=== PATIENT | male | born 1935 | race Caucasian/White ===

== ENCOUNTER 2017-05-12 06:06 | Day surgery (SDC) | payer MEDICARE, MEDICAID ==
[~2017-05-12 06:06] MED LIST: Buffered Lidocaine 0.9% SYRIN* 5 ML/SYR SYRINGE INTRADERM ONE; Famotidine IV* 10 MG/ML 2 ML (20 mg) IV ONE; Morphine INJ* 2 MG/ML 1 ML CARPUJECT IV PRN; PROCHLORPERAZINE INJ 5 MG/ML 2 ML VIAL IV PRN; fentaNYL* 50 MCG/ML 2 ML VIAL (100 MCG VIAL) IV PRN; oxyCODONE/Acetamin 5/325 MG* TAB PO PRN
[2017-05-12] MEDS ORDERED: Famotidine IV* 10 MG/ML 2 ML (20 mg) ONE (06:26)
[2017-05-12] MEDS ORDERED: Buffered Lidocaine 0.9% SYRIN* 5 ML/SYR SYRINGE ONE (06:27)
[2017-05-12] MEDS ORDERED: cefTRIAXone(*) 2 GM ADDV.VIAL IVPB ONE (06:57)
[2017-05-12] MEDS ORDERED: fentaNYL* 50 MCG/ML 2 ML VIAL (100 MCG VIAL) ONE (07:32)
[2017-05-12] MEDS ORDERED: Midazolam* 1 MG/ML 5 ML VIAL (5 MG) ONE (07:32)
[2017-05-12] MEDS ORDERED: KETAMINE HCL* 50 MG/ML 10 ML VIAL ONE (07:32)
[2017-05-12] MEDS ORDERED: Chloroprocaine 2%* 20 ML VIAL ONE (08:27)
[2017-05-12] MEDS ORDERED: Glycopyrrolate IV* 0.2 MG/ML 1 ML VIAL ONE (08:27)
[2017-05-12] MEDS ORDERED: Phenylephrine INJ* 10 MG/ML 1 ML VIAL (10 MG) ONE (08:28)
[2017-05-12] MEDS ORDERED: mitoMYcin PWD* 40 MG in Sterile Water for Inj* 40 ML IRRIGATION ONE (10:00)
[2017-05-12 10:19] VITALS: BP 153/90
--- NOTE | 2017-05-13 00:31 | OP ---
CC: Dr. Zarco * DATE OF OPERATION: 05/12/17 - [facility] DATE OF : 31 SURGEON: Ramírez Wylie MD ANESTHESIOLOGIST: Jase Ybarra MD ANESTHESIA: Spinal. PRE-OP DIAGNOSES: 1. History of bladder tumors. 2. Suspicious bladder lesion (left base). POST-OP DIAGNOSIS: Pending pathology. OPERATIVE PROCEDURE: 1. Cystoscopy. 2. Excisional biopsy and fulguration of bladder lesion (left base, 1.5 cm). INDICATIONS FOR PROCEDURE: Mr. 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 On his last cystoscopy, an irregularity and hyperemia of the mucosa in the left base was noted. The patient had received radiation therapy for carcinoma of the prostate completed in May 2008. Because of the above history and finding and the suspicious lesion seen, the above procedure was advised and accepted. PATHOLOGY: at cystoscopy; the penile and bulbar urethrae looked normal. The prostatic urethra measured 2.5 cm in length and there was early obstruction by prostate enlargement. Examination of the bladder showed normal ureteral orifices. A flat lesion measuring about 1.5 cm in diameter was noted lateral to the left ureteral orifice. There was irregularity and some hyperemia of the mucosa. No papillary lesions were seen. No other bladder lesions were noted. No calculi or diverticula were seen. DESCRIPTION OF PROCEDURE: After successful spinal anesthesia, the patient was placed in the lithotomy position and was prepped and draped for a cystoscopy. Cystoscopy was performed. The bladder was carefully inspected and the above findings were noted. It was a little bit difficult identifying the left orifice because of a mucosal fold. The orifice, however, was successfully identified and was briefly intubated to document its location. Using the rigid biopsy forceps, the bladder lesion in the left base was excised down to muscle. The specimen was sent for pathology. The site of the excisional biopsies and the surrounding mucosa were thoroughly fulgurated with coagulation current, achieving very good hemostasis and no residual suspicious lesions were noted. The cystoscope was removed. A 16-Irish Gerber catheter was then passed inside the bladder. The patient tolerated the procedure well and left the operating room in good condition. The plan is to give the patient one dose of intravesical mitomycin-C in the PACU before his discharge. [id number]/[facility] #: [id number] MTDD
== END 2017-05-12 11:03 | disposition home or self-care (01) ==
LOC: OR 06:06
PROVIDERS: ATTEND Urology
DX: D09.0 Carcinoma in situ of bladder (principal); Z87.891 Personal history of nicotine dependence; I25.10 Atherosclerotic heart disease of native coronary artery without angina pectoris; Z95.5 Presence of coronary angioplasty implant and graft; Z79.01 Long term (current) use of anticoagulants; K21.9 Gastro-esophageal reflux disease without esophagitis; J44.9 Chronic obstructive pulmonary disease, unspecified; Z85.46 Personal history of malignant neoplasm of prostate; I10 Essential (primary) hypertension; I73.9 Peripheral vascular disease, unspecified; Z85.038 Personal history of other malignant neoplasm of large intestine; N18.3 Chronic kidney disease, stage 3 (moderate); Z85.118 Personal history of other malignant neoplasm of bronchus and lung
CPT/HCPCS: 88305; J0696; J2250; J2400; J3010; J9280

== ENCOUNTER 2017-08-13 15:06 | Inpatient (IN) | payer MEDICARE, MEDICAID ==
[2017-08-13] MEDS ORDERED: cefTRIAXone(*) 1 GM in NS 0.9% 50 ML* 50 ML IVPB ONE (15:31)
[2017-08-13] MEDS: NS 0.9% 1000 ML* 1,000 ML IV ONE ×2 (15:38→18:51)
[2017-08-13 15:42] LABS: Hematocrit 46 % (42-52); Mean Corpuscular HGB Conc 33 g/dl (31-36); Mean Corpuscular Hemoglobin 26 pg (27-31); Mean Corpuscular Volume 80 fL (80-94); Mean Platelet Volume 10 um3 (7.4-10.4); Platelet Count 139 10^3/ul (150-450); Red Blood Count 5.71 10^6/ul (4.0-5.4); Red Cell Distribution Width 15 % (10.5-15); White Blood Count 18.9 10^3/ul (3.5-10.8)
--- NOTE | 2017-08-13 15:58 | RAD ---
INDICATION: Cough and fever COMPARISON: Chest x-ray November 29, 2016 TECHNIQUE: An AP portable view obtained at 1543 hours is submitted. FINDINGS: Bones/Soft Tissues: There are no acute bony findings. Cardiomediastinal: The chronic silhouette is mildly prominent. Lungs: The left lung is clear. There is volume loss in the right chest with increased airspace disease. Pleura: Chronic blunting of the rectus phrenic angle versus pleural fluid. Other: None IMPRESSION: CHRONIC PLEURAL AND PARENCHYMAL ABNORMALITIES RIGHT CHEST WITH VOLUME LOSS. SUSPECT SUPERIMPOSED POST INFILTRATE WITH INCREASED CONSOLIDATIVE CHANGE.
[2017-08-13 16:00] LABS: ABS Basophils 0.1 10^3/ul (0-0.2); ABS Eosinophils 0 10^3/ul (0-0.6); ABS Lymphocytes 0.6 10^3/ul (1.0-4.8); ABS Monocytes 0.5 10^3/ul (0-0.8); ABS Neutrophils 17.7 10^3/ul (1.5-7.7); ABS Nucleated RBC 0 10^3/ul; Eosinophil % 0.1 % (0-6); Nucleated Red Blood Cells % 0
[2017-08-13 16:43] LABS: INR 1.24 (0.77-1.02)
[2017-08-13] MEDS ORDERED: NS 0.9% 1000 ML* 2,000 ML IV ONE (16:43)
[2017-08-13] MEDS ORDERED: Azithromycin IV(*) 500 MG in NS 0.9% 250 ML* 250 ML IVPB SCH (17:00)
[2017-08-13] MEDS ORDERED: NS 0.9% 1000 ML* 1,000 ML IV ONE (17:13)
[2017-08-13] MEDS ORDERED: Ondansetron INJ* 2 MG/ML VIAL IV PRN (17:45)
[2017-08-13] MEDS ORDERED: Albuterol/Ipratropium NEB.SOL* Albuterol 2.5 MG/Ipratropium 0.5 MG 3 ML INH PRN (18:12)
[2017-08-13] MEDS: Acetaminophen TAB* 325 MG PO PRN (18:22)
--- NOTE | 2017-08-13 18:51 | ED ---
Delmi Gutiérrez Thomas, scribed for Ron Hillman MD on 08/13/17 at 1546 . HPI Febrile Illness - HPI Summary HPI Summary: The patient is an 82 year old male that is brought to the emergency room by his and granddaughter with fever, productive cough, and chills that began last night. Per triage note, he is short of breath. The patient additionally complains of decreased appetite. The patient speaks [place]an, and the patients granddaughter acts as banquet coordinator. - History of Current Complaint Chief Complaint: EDFluSymptoms Time Seen by Provider: 08/13/17 15:16 Hx Obtained From: Patient Onset/Duration: Started Days Ago - 1, Still Present Timing: Constant Initial Severity: Moderate Current Severity: Moderate Pain Intensity: 0 Pain Scale Used: 0-10 Numeric Aggravating Factors: Nothing Alleviating Factors: Nothing Associated Signs and Symptoms: Other: - fever, productive cough, chills, SOB, decreased appetite - Additional Pertinent History Primary Care Physician: NILS - Allergy/Home Medications Allergies/Adverse Reactions: Allergies Allergy/AdvReac Type Severity Reaction Status Date / Time No Known Allergies Allergy Verified 08/13/17 15:14 Home Medications: Home Medications Albuterol HFA INHALER* [Ventolin HFA Inhaler*] 2 puff INH Q4H PRN 08/13/17 [ History Confirmed 08/13/17] Lisinopril/HCTZ 20/12.5(NF) [Zestoretic 20/12.5(NF)] 1 tab PO DAILY 08/13/17 [ History Confirmed 08/13/17] Metoprolol Tartrate TAB* [Lopressor TAB*] 25 mg PO BID 08/13/17 [History Confirmed 08/13/17] Nitroglycerin TAB 0.4 MG* 0.4 mg SL Q5M PRN 08/13/17 [History Confirmed 08/13/17 ] Tiotropium CAP.INH* [Spiriva CAP.INH*] 1 cap.inh INH DAILY 08/13/17 [History Confirmed 08/13/17] PMH/Surg Hx/FS Hx/Imm Hx Endocrine/Hematology History: Denies: Hx Diabetes Cardiovascular History: Reports: Hx Coronary Artery Disease, Hx Hypertension, Hx Pacemaker/ICD, Hx Peripheral Vascular Disease Comment Only: Other Cardiovascular Problems/Disorders - CARDIAC STENT 10/2012 Respiratory History: Reports: Hx Chronic Obstructive Pulmonary Disease (COPD), Hx Lung Cancer, Other Respiratory Problems/Disorders - LUNG CA GI History: Reports: Hx Gastroesophageal Reflux Disease, Hx Ulcer - GI Bleed - healed, Other GI Disorders - hx of polyps in colon History: Reports: Other Problems/Disorders - Prostate cancer resolved Denies: Hx Renal Disease Musculoskeletal History: Reports: Hx Arthritis Sensory History: Reports: Hx Contacts or Glasses - glasses, Hx Hearing Aid - left ? ear Opthamlomology History: Reports: Hx Contacts or Glasses - glasses Neurological History: Denies: Hx Seizures Psychiatric History: Reports: Hx Anxiety - Cancer History Cancer Type, Location and Year: prostate, bladder, lung cancer Hx Chemotherapy: No - Surgical History Surgery Procedure, Year, and Place: right LUNG LOBECTOMY. HERNIA repair. coronary artery stent placement. rectal polyp removed Hx Anesthesia Reactions: No - Immunization History Date of Tetanus Vaccine: UNKNOWN Infectious Disease History: No Infectious Disease History: Reports: Hx Shingles Denies: Hx Hepatitis, History Other Infectious Disease, Traveled Outside the [place] in Last 30 Days - Family History Known Family History: Positive: Hypertension, Diabetes, Other - HLD, CVA - Social History Alcohol Use: None Substance Use Type: Reports: None Hx Tobacco Use: No Smoking Status (MU): Former Smoker Amount Used/How Often: smoked since 17 years Review of Systems Positive: Fever, Chills Positive: Shortness Of Breath, Cough Positive: Other - Decreased appetite. All Other Systems Reviewed And Are Negative: Yes Physical Exam - Summary Physical Exam Summary: VITAL SIGNS: Reviewed. GENERAL: Patient is a well-developed and nourished male is lying comfortable in the stretcher. Patient is not in any acute respiratory distress. HEAD AND FACE: No signs of trauma. No ecchymosis, hematomas or skull depressions. No sinus tenderness. EYES: PERRLA, EOMI x 2, No injected conjunctiva, no nystagmus. EARS: Hearing grossly intact. Ear canals and tympanic membranes are within normal limits. NOSE: Nasal mucosa and oral mucosa are dry. MOUTH: Oropharynx within normal limits. NECK: Supple, trachea is midline, no adenopathy, no JVD, no carotid bruit, no c- spine tenderness, neck with full ROM. CHEST: Symmetric, no tenderness at palpation LUNGS: Bilateral crackles. CVS: Tachycardia, regular rhythm, S1 and S2 present, no murmurs or gallops appreciated. ABDOMEN: Soft, non-tender. No signs of distention. No rebound no guarding, and no masses palpated. Bowel sounds are normal. EXTREMITIES: FROM in all major joints, no edema, no cyanosis or clubbing. NEURO: Alert and oriented x 3. No acute neurological deficits. Speech is normal and follows commands. SKIN: Dry and warm Triage Information Reviewed: Yes Vital Signs On Initial Exam: Initial Vitals Temp Pulse Resp BP Pulse Ox 100.9 F 135 24 133/76 91 08/13/17 15:15 08/13/17 15:15 08/13/17 15:15 08/13/17 15:15 08/13/17 15:15 Vital Signs Reviewed: Yes Diagnostics - Vital Signs Vital Signs Temp Pulse Resp BP Pulse Ox 08/13/17 15:35 95 08/13/17 15:15 100.9 F 135 24 133/76 91 - Laboratory Lab Results: Lab Results 08/13/17 08/13/17 08/13/17 Range/Units 15:30 15:30 15:30 WBC (3.5-10.8) 10^3/ul RBC (4.0-5.4) 10^6/ul Hgb (14.0-18.0) g/dl Hct (42-52) % MCV (80-94) fL MCH (27-31) pg MCHC (31-36) g/dl RDW (10.5-15) % Plt Count (150-450) 10^3/ul MPV (7.4-10.4) um3 Neut % (Auto) (38-83) % Lymph % (Auto) (25-47) % Gregory % (Auto) (1-9) % Eos % (Auto) (0-6) % Baso % (Auto) (0-2) % Absolute Neuts (auto) (1.5-7.7) 10^3/ul Absolute Lymphs (auto) (1.0-4.8) 10^3/ul Absolute Monos (auto) (0-0.8) 10^3/ul Absolute Eos (auto) (0-0.6) 10^3/ul Absolute Basos (auto) (0-0.2) 10^3/ul Absolute Nucleated RBC 10^3/ul Nucleated RBC % ESR (0-40) mm/Hr INR (Anticoag Therapy) 1.24 H (0.77-1.02) APTT 34.0 (26.0-36.3) seconds Fibrinogen 612 H (110.8-404.3) mg/dL Sodium 133 (133-145) mmol/L Potassium 4.6 (3.5-5.0) mmol/L Chloride 99 L (101-111) mmol/L Carbon Dioxide 23 (22-32) mmol/L Anion Gap 11 (2-11) mmol/L BUN 52 H (6-24) mg/dL Creatinine 2.66 H (0.67-1.17) mg/dL Est GFR ( Amer) 29.6 (>60) Est GFR (Non-Af Amer) 23.0 (>60) BUN/Creatinine Ratio 19.5 (8-20) Glucose 180 H (70-100) mg/dL Lactic Acid 2.2 H* (0.5-2.0) mmol/L Calcium 9.6 (8.6-10.3) mg/dL Total Bilirubin 1.40 H (0.2-1.0) mg/dL AST 31 (13-39) U/L ALT 21 (7-52) U/L Alkaline Phosphatase 51 (34-104) U/L Total Creatine Kinase 425 H (10-223) U/L Troponin I 0.03 (<0.04) ng/mL C-Reactive Protein 391.49 H (< 5.00) mg/L B-Natriuretic Peptide ( - 100) pg/mL Total Protein 7.8 (6.4-8.9) g/dL Albumin 3.8 (3.2-5.2) g/dL Globulin 4.0 (2-4) g/dL Albumin/Globulin Ratio 1.0 (1-3) Procalcitonin (<0.6) ng/mL Influenza A (Rapid) (Negative) Influenza B (Rapid) (Negative) 08/13/17 08/13/17 08/13/17 Range/Units 15:30 15:30 15:30 WBC 18.9 H (3.5-10.8) 10^3/ul RBC 5.71 H (4.0-5.4) 10^6/ul Hgb 15.0 (14.0-18.0) g/dl Hct 46 (42-52) % MCV 80 (80-94) fL MCH 26 L (27-31) pg MCHC 33 (31-36) g/dl RDW 15 (10.5-15) % Plt Count 139 L (150-450) 10^3/ul MPV 10 (7.4-10.4) um3 Neut % (Auto) 93.5 H (38-83) % Lymph % (Auto) 3.0 L (25-47) % Gregory % (Auto) 2.9 (1-9) % Eos % (Auto) 0.1 (0-6) % Baso % (Auto) 0.5 (0-2) % Absolute Neuts (auto) 17.7 H (1.5-7.7) 10^3/ul Absolute Lymphs (auto) 0.6 L (1.0-4.8) 10^3/ul Absolute Monos (auto) 0.5 (0-0.8) 10^3/ul Absolute Eos (auto) 0 (0-0.6) 10^3/ul Absolute Basos (auto) 0.1 (0-0.2) 10^3/ul Absolute Nucleated RBC 0 10^3/ul Nucleated RBC % 0 ESR 52 H (0-40) mm/Hr INR (Anticoag Therapy) (0.77-1.02) APTT (26.0-36.3) seconds Fibrinogen (110.8-404.3) mg/dL Sodium (133-145) mmol/L Potassium (3.5-5.0) mmol/L Chloride (101-111) mmol/L Carbon Dioxide (22-32) mmol/L Anion Gap (2-11) mmol/L BUN (6-24) mg/dL Creatinine (0.67-1.17) mg/dL Est GFR ( Amer) (>60) Est GFR (Non-Af Amer) (>60) BUN/Creatinine Ratio (8-20) Glucose (70-100) mg/dL Lactic Acid (0.5-2.0) mmol/L Calcium (8.6-10.3) mg/dL Total Bilirubin (0.2-1.0) mg/dL AST (13-39) U/L ALT (7-52) U/L Alkaline Phosphatase (34-104) U/L Total Creatine Kinase (10-223) U/L Troponin I (<0.04) ng/mL C-Reactive Protein (< 5.00) mg/L B-Natriuretic Peptide 368 H ( - 100) pg/mL Total Protein (6.4-8.9) g/dL Albumin (3.2-5.2) g/dL Globulin (2-4) g/dL Albumin/Globulin Ratio (1-3) Procalcitonin 53.4 H (<0.6) ng/mL Influenza A (Rapid) (Negative) Influenza B (Rapid) (Negative) 08/13/17 Range/Units 15:38 WBC (3.5-10.8) 10^3/ul RBC (4.0-5.4) 10^6/ul Hgb (14.0-18.0) g/dl Hct (42-52) % MCV (80-94) fL MCH (27-31) pg MCHC (31-36) g/dl RDW (10.5-15) % Plt Count (150-450) 10^3/ul MPV (7.4-10.4) um3 Neut % (Auto) (38-83) % Lymph % (Auto) (25-47) % Gregory % (Auto) (1-9) % Eos % (Auto) (0-6) % Baso % (Auto) (0-2) % Absolute Neuts (auto) (1.5-7.7) 10^3/ul Absolute Lymphs (auto) (1.0-4.8) 10^3/ul Absolute Monos (auto) (0-0.8) 10^3/ul Absolute Eos (auto) (0-0.6) 10^3/ul Absolute Basos (auto) (0-0.2) 10^3/ul Absolute Nucleated RBC 10^3/ul Nucleated RBC % ESR (0-40) mm/Hr INR (Anticoag Therapy) (0.77-1.02) APTT (26.0-36.3) seconds Fibrinogen (110.8-404.3) mg/dL Sodium (133-145) mmol/L Potassium (3.5-5.0) mmol/L Chloride (101-111) mmol/L Carbon Dioxide (22-32) mmol/L Anion Gap (2-11) mmol/L BUN (6-24) mg/dL Creatinine (0.67-1.17) mg/dL Est GFR ( Amer) (>60) Est GFR (Non-Af Amer) (>60) BUN/Creatinine Ratio (8-20) Glucose (70-100) mg/dL Lactic Acid (0.5-2.0) mmol/L Calcium (8.6-10.3) mg/dL Total Bilirubin (0.2-1.0) mg/dL AST (13-39) U/L ALT (7-52) U/L Alkaline Phosphatase (34-104) U/L Total Creatine Kinase (10-223) U/L Troponin I (<0.04) ng/mL C-Reactive Protein (< 5.00) mg/L B-Natriuretic Peptide ( - 100) pg/mL Total Protein (6.4-8.9) g/dL Albumin (3.2-5.2) g/dL Globulin (2-4) g/dL Albumin/Globulin Ratio (1-3) Procalcitonin (<0.6) ng/mL Influenza A (Rapid) Negative (Negative) Influenza B (Rapid) Negative (Negative) Result Diagrams: 08/13/17 15:30 08/13/17 15:30 Lab Statement: Any lab studies that have been ordered have been reviewed, and results considered in the medical decision making process. - Radiology CXR Xray Interpretation: Positive (See Comments) - CHRONIC PLEURAL AND PARENCHYMAL ABNORMALITIES RIGHT CHEST WITH VOLUME LOSS. SUSPECT SUPERIMPOSED POST INFILTRATE WITH INCREASED CONSOLIDATIVE CHANGE. Dr. Hillman has reviewed this report. Radiology Interpretation Completed By: Radiologist - EKG 15:29 Cardiac Rate: Tachycardia EKG Interpretation: Atrial rhythm at 109 BPM. Similar to previous EKG on . Course/Dx - Course Assessment/Plan: The patient is an 82 year old male that is brought to the emergency room by his and granddaughter with fever, productive cough, and chills that began last night. Per triage note, he is short of breath. The patient additionally complains of decreased appetite. The patient speaks [place] , and the patients granddaughter acts as banquet coordinator. Test results show WBC 18.9 with a left shift, fibrinogen 612, acute renal failure, lactic acid 2.2, CRP 391, procalcitonin 53. Influenza A and B are negative. In the ED course, the patient was given one liter of fluids because the patient has a good blood pressure and I do not want to overload the patient. I also ordered a second liter. The patient was given Rocephin and Azithromycin because it appeared that the patient had community-acquired pneumonia. However, the patient began to appear septic so more fluids were ordered to maintain the blood pressure. - Febrile Illness Differential Diagnoses: Pneumonia - Diagnoses Provider Diagnoses: Pneumonia, Sepsis, Acute renal failure - Provider Notifications Discussed Care Of Patient With: Precious Velasquez Time Discussed With Above Provider: 16:48 Instructed by Provider To: Admit As Inpatient - Critical Care Time Critical Care Time: 30-74 min Discharge - Discharge Plan Condition: Good Disposition: ADMITTED TO [facility] The documentation as recorded by the Delmi meeks Thomas accurately reflects the service I personally performed and the decisions made by me, Ron Hillman MD.
[2017-08-13 19:25] LABS: Urine Appearance Cloudy; Urine Blood 3+ (Negative); Urine Color Yellow; Urine Ketones Negative (Negative); Urine Protein 1+(30 mg/dL) (Negative); Urine Specific Gravity 1.015 (1.010-1.030); Urine Urobilinogen Negative (Negative)
[2017-08-13] MEDS: NS 0.9% 1000 ML* 1,000 ML IV SCH (19:57)
[2017-08-13] MEDS ORDERED: NS 0.9% 500 ML* 500 ML IV ONE (20:49)
[2017-08-13] MEDS: Apixaban* 2.5 MG TAB PO SCH (21:16)
--- NOTE | 2017-08-13 21:17 | RAD ---
INDICATION: Diarrhea COMPARISON: Chest x-ray August 13, 2017 TECHNIQUE: A single view of the abdomen is submitted. Examination is mildly limited due to motion artifact FINDINGS: Bones: There are no acute bony findings. Soft tissues: The soft tissues appear normal. The psoas margins are sharp. Bowel gas pattern: Nonspecific Calcifications: There are no abnormal calcifications. Other: There are right basilar lung abnormalities as evident on the concurrent chest x-ray IMPRESSION: NO ACUTE DIAGNOSTIC FINDINGS.
[2017-08-13] MEDS: Metoprolol Tartrate TAB* 25 MG PO SCH (22:25)
--- NOTE | 2017-08-13 23:23 | HP ---
CC: Dr. Zarco * [facility] MEDICINE HISTORY AND PHYSICAL: DATE OF ADMISSION: 08/13/17 PRIMARY CARE PHYSICIAN: Dr. Zarco. ATTENDING PHYSICIAN: Abdi Schmidt MD * (dictation provided by Precious Velasquez NP) CHIEF COMPLAINT: Cough and fever. HISTORY OF PRESENT ILLNESS: Mr. Velazquez is an 82-year-old male who does not speak very much Latvian and translation is provided by his granddaughter who is at the bedside as well as some support from his who he lives with. Mr. Velazquez has a history of lung cancer with a right lower lobe lobectomy as well as prostate and colon cancer. He also has history of COPD and coronary artery disease with stent. The report is that Mr. Velazquez was feeling well until yesterday morning at 6 a.m. when his noted that he had a fever. His fevers were as high as 103. He had cough, he had chills. He has appeared quite unwell through the day yesterday and ate very little. Family wanted him to come to the emergency room for evaluation, but he refused. This morning, he continued to feel unwell and was coughing frequently, bringing up lots of mucus and ultimately agreed to have EMS called to be brought to the ED. In addition to these symptoms, he also reported some nausea yesterday. He had 1 bout of diarrhea, he has had no vomiting. He denies chest pain or other complaints. In the emergency room, Mr. Velazquez had a chest x-ray which confirmed a right- sided pneumonia. He had an elevated white blood cell count, CRP, and prolactin levels. His heart rate was in the 130's. He was on 2 L nasal cannula and not hypoxic. He has acute on chronic kidney injury with an elevated BUN and creatinine. PAST MEDICAL HISTORY: 1. Atrial fibrillation. 2. Lung cancer with lobectomy. 3. COPD. 4. Hypertension. 5. Hyperlipidemia. 6. Depression. 7. Coronary artery disease with stent. 8. Prostate cancer. 9. Colon cancer. 10. Lung cancer. MEDICATIONS: Outpatient are: 1. Albuterol inhaled p.r.n. 2. Amlodipine 10 mg p.o. q.a.m. 3. Lisinopril/hydrochlorothiazide 20/12.5, 1 tab p.o. daily. 4. Nitroglycerin 0.4 mg sublingually q.5 minutes p.r.n. 5. Tiotropium 1 cap inhale daily. 6. Apixaban 2.5 mg p.o. b.i.d. 7. Aspirin 81 mg p.o. q.a.m. 8. Atorvastatin 80 mg p.o. q.a.m. 9. Metoprolol tartrate 25 mg p.o. b.i.d. 10. Omeprazole 20 mg p.o. daily. 11. Sertraline 150 mg p.o. q.a.m. ALLERGIES: No known drug allergies. FAMILY HISTORY: The patient has a family history of pancreatic cancer. SOCIAL HISTORY: The patient is a former smoker, but quit sometime ago. No report of alcohol or drug use. Lives with his , his healthcare proxy. REVIEW OF SYSTEMS: A 14-point review of systems was completed with Mr. Velazquez, all those not mentioned above were negative. PHYSICAL EXAMINATION GENERAL: Mr. Velazquez looks well. He is sitting up in the bed. He is in no acute distress. VITAL SIGNS: Temperature 99.3, pulse rate 118 after 1 L of IV fluids, respiratory rate 28, O2 saturation 95% on 2 L nasal cannula, blood pressure 114/ 89. LUNGS: Are diminished all along the right, they are clear on the left. No accessory muscle use, good aeration. HEART: S1, S2 and rapid, but regular. ABDOMEN: Soft, nontender. Bowel sounds positive x4. EXTREMITIES: No cyanosis, no edema. NEURO: He is alert, he is oriented x3. He moves all extremities equally. There is no facial asymmetry or focal weakness. Extraocular movements are intact. SKIN: Intact. DIAGNOSTIC STUDIES/LAB DATA: WBC 18.9, hemoglobin 15.0, hematocrit 46, platelet count 139,000. ESR 52. INR 1.24, fibrinogen 612. Sodium 133, potassium 4.6, chloride 99, serum bicarbonate 23, BUN 52, creatinine 2.66, glucose 180, lactic acid 2.2. CRP 391.59. Procalcitonin 53.4. Flu swab is negative. Chest x-ray shows chronic pleural and parenchymal abnormalities in the right chest with volume loss. Suspect superimposed infiltrate with increased consolidative change. ASSESSMENT AND PLAN: Mr. Velazquez is an 82-year-old male with a past medical history of lung cancer with lobectomy on the right as well as prostate and colon cancer, chronic obstructive pulmonary disease, atrial fibrillation and coronary artery disease who presents today to the hospital with report of sudden onset yesterday of fever, chills, cough with some nausea and minimal diarrhea. In the emergency room, he has been found to be septic with pneumonia. Our plans are for inpatient admission. I suspect his length of stay to be greater than 2 days for the followin. Sepsis secondary to pneumonia: The patient has elevated white blood cell count, tachycardia, tachypnea with a new O2 requirement. He meets sepsis criteria and will be treated accordingly. I think this is all secondary to right-sided pneumonia. He has had 1 L of IV fluids in the emergency room. I will continue with 2 additional L to meet the 30 mL per kilogram requirement. He has had blood cultures drawn. Lactic acid is slightly elevated at 2.2, we will repeat after IV fluids. He will have ceftriaxone and azithromycin for antibiotic coverage. He will have oxygen available as needed. 2. Hypertension. Plan to hold the amlodipine, lisinopril/hydrochlorothiazide, but continue metoprolol with hold parameters. He is hemodynamically stable at this point. 3. Chronic obstructive pulmonary disease. No wheezing noted. No evidence of chronic obstructive pulmonary disease exacerbation. He will have Duo nebulizers available as needed. 4. Atrial fibrillation. The patient is in a sinus rhythm. Plan to continue his apixaban and metoprolol. 5. Hyperlipidemia. Continue atorvastatin. 6. Gastroesophageal reflux disease. Continue omeprazole. 7. Depression. Continue sertraline. 8. DVT prophylaxis with apixaban and SCDs. 9. Code status is full code. TIME SPENT: Approximately 75 minutes were spent on admission of this patient, more than half the time was spent with the patient at the bedside reviewing the events leading up to this hospitalization, performing the physical examination, and reviewing my plan of care. PRECIOUS VELASQUEZ NP [id number]/[facility] #: [id number] COLTEN
[2017-08-14] MEDS: NS 0.9% 1000 ML* 1,000 ML IV SCH ×3 (00:29→19:50)
[2017-08-14 05:54] LABS: Hematocrit 39 % (42-52); Hemoglobin 12.5 g/dl (14.0-18.0); Mean Corpuscular HGB Conc 32 g/dl (31-36); Mean Corpuscular Hemoglobin 26 pg (27-31); Mean Corpuscular Volume 81 fL (80-94); Mean Platelet Volume 10 um3 (7.4-10.4); Platelet Count 122 10^3/ul (150-450); Red Blood Count 4.79 10^6/ul (4.0-5.4); Red Cell Distribution Width 16 % (10.5-15); White Blood Count 14.2 10^3/ul (3.5-10.8)
[2017-08-14 06:09] LABS: EGFR Non-African American 32.7 (>60)
[2017-08-14 06:22] LABS: ABS Basophils 0 10^3/ul (0-0.2); ABS Eosinophils 0 10^3/ul (0-0.6); ABS Lymphocytes 0.6 10^3/ul (1.0-4.8); ABS Monocytes 0.5 10^3/ul (0-0.8); ABS Neutrophils 13.1 10^3/ul (1.5-7.7); ABS Nucleated RBC 0 10^3/ul; Eosinophil % 0 % (0-6); Lymphocyte % 4.1 % (25-47); Nucleated Red Blood Cells % 0
--- NOTE | 2017-08-14 07:59 | PN ---
Subjective Date of Service: 08/14/17 Interval History: Mr. Velazquez states that he is feeling better today. He denies chest pain or SOB. He continues to have a cough. He denies nausea or abdominal pain and reports a BM yesterday. Objective Active Medications: Acetaminophen (Tylenol Tab*) 650 mg PO Q6H PRN Albuterol/Ipratropium (Duoneb (Albuterol 2.5 Mg/Ipratropium 0.5 Mg)) 1 neb INH Q4H PRN Apixaban (Eliquis) 2.5 mg PO BID KAITLYNN Aspirin (Aspirin Ec Low Dose*) 81 mg PO QAM KAITLYNN Atorvastatin Calcium (Lipitor*) 80 mg PO QAM [facility] Ceftriaxone Sodium 1 gm/ (Dextrose) 50 mls @ 200 mls/hr IVPB Q24H KAITLYNN Sodium Chloride (Ns 0.9% 1000 Ml*) 1,000 mls @ 125 mls/hr IV PER RATE KAITLYNN Azithromycin 250 mg/ Sodium (Chloride) 250 mls @ 250 mls/hr IVPB Q24H [facility] Metoprolol Tartrate (Lopressor Tab*) 25 mg PO BID KAITLYNN Omeprazole (Prilosec Cap*) 20 mg PO DAILY KAITLYNN Ondansetron HCl (Zofran Inj*) 4 mg IV Q6H PRN Sertraline HCl (Zoloft*) 150 mg PO QAM [facility] Vital Signs: Temp Pulse Resp BP Pulse Ox 99.5 F 100 19 97/57 94 08/14/17 07:41 08/14/17 05:30 08/14/17 05:47 08/14/17 05:30 08/14/17 05:30 Oxygen Devices in Use Now: None Appearance: Male lying in bed in NAD Eyes: No Scleral Icterus Ears/Nose/Mouth/Throat: Mucous Membranes Moist Neck: Trachea Midline Respiratory: Symmetrical Chest Expansion and Respiratory Effort, - - Diminished on right, no adventious sounds Cardiovascular: NL Sounds; No Murmurs; No JVD, No Edema Abdominal: NL Sounds; No Tenderness; No Distention Lymphatic: No Cervical Adenopathy Extremities: No Edema Skin: No Rash or Ulcers Neurological: Alert and Oriented x 3, NL Muscle Strength and Tone Nutrition: Taking PO's Result Diagrams: 08/14/17 05:31 08/14/17 05:31 Additional Lab and Data: . Microbiology and Other Data: . Assess/Plan/Problems-Billing Assessment: Mr. Velazquez is an 82 yo M with a PMH of CAD, afib, COPD, and lung cancer with right lobectomy who was admitted on 08/13/17 with sepsis secondary to community acquired pneumonia. - Patient Problems (1) Sepsis Comment: - Resolving leukocytosis, afebrile since yesterday afternoon. - Continue IV fluid boluses for relative hypotension and HR 90-110. (2) Pneumonia Comment: - On room air at rest. - Flu negative. Strep pneumo and legionella urine antigens pending. Blood and sputum cultures pending. - Continue ceftriaxone and azithromcyin. - Duonebs prn. (3) CKD (chronic kidney disease) Comment: - BUN/Cr elevated above baseline. - Continue IV fluids. (4) PAF (paroxysmal atrial fibrillation) Comment: - Remains in SR. - Continue metoprolol. - Continue apixaban. (5) CAD (coronary artery disease) Comment: - Asymptomatic. - Continue ASA, atorvastatin, and metoprolol. Hold lisinopril with relative hypotension. (6) COPD (chronic obstructive pulmonary disease) Comment: - No evidence of exacerbation. - Duonebs prn. (7) HTN (hypertension) Comment: - SBP 90s. - Continue metoprolol with hold parameters. - Hold lisinopril/hctz, amlodipine. (8) HLD (hyperlipidemia) Comment: - Continue atorvastatin. (9) DVT prophylaxis Comment: - Felipaquis. (10) Full code status Comment: - Confirmed. Status and Disposition: Inpatient with expected LOS > 2 days with critical illness. Anticipate discharge to home when medically stable.
[2017-08-14] MEDS ORDERED: NS 0.9% 1000 ML* 1,000 ML IV SCH (08:00)
[2017-08-14] MEDS ORDERED: NS 0.9% 1000 ML* 1,000 ML IV ONE (09:00)
[2017-08-14] MEDS ORDERED: LORazepam INJ* 2 MG/ML 1 ML VIAL ONE (09:34)
[2017-08-14] MEDS ORDERED: LORazepam INJ* 2 MG/ML 1 ML VIAL IV PUSH ONE (09:36)
[2017-08-14] MEDS: Atorvastatin* 80 MG TAB PO SCH (09:44)
[2017-08-14] MEDS: Sertraline* 100 MG TAB PO SCH (09:44)
[2017-08-14] MEDS: Omeprazole CAP* 20 MG PO SCH (09:45)
[2017-08-14] MEDS: Aspirin EC Low Dose* 81 MG TAB.EC PO SCH (09:45)
[2017-08-14] MEDS: Metoprolol Tartrate TAB* 25 MG PO SCH ×2 (09:45→21:02)
[2017-08-14] MEDS: Apixaban* 2.5 MG TAB PO SCH ×2 (09:51→21:02)
[2017-08-14] MEDS ORDERED: Benzonatate CAP* 100 MG PO ONE (10:01)
[2017-08-14] MEDS ORDERED: Simethicone TAB* 80 MG TAB.CHEW PO PRN (10:16)
[2017-08-14] MEDS: guaiFENesin ER TAB 600 MG PO SCH ×2 (10:27→21:02)
[2017-08-14] MEDS ORDERED: cefTRIAXone VIAL(*) 1,000 MG VIAL IVPB SCH (12:00)
[2017-08-14] MEDS ORDERED: Azithromycin IV(*) 250 MG in NS 0.9% 250 ML* 250 ML IVPB SCH (15:00)
[2017-08-14] MEDS ORDERED: cefTRIAXone(*) 1 GM in D5W 50 ML BAG* 50 ML IVPB SCH (15:00)
[2017-08-14] MEDS: amLODIPine TAB* 5 MG PO SCH (15:58)
[2017-08-14] MEDS: Acetaminophen TAB* 325 MG PO PRN (18:38)
[2017-08-14] MEDS ORDERED: CMC Melatonin (NF) 3 MG TAB PO PRN (20:05)
[2017-08-15] MEDS ORDERED: Magnesium Oxide TAB* 400 MG PO ONE (00:20)
[2017-08-15] MEDS: Saline NASAL SPRAY 0.65%* BTL BOTH NARES PRN ×2 (01:55→08:12)
[2017-08-15] MEDS ORDERED: Benzonatate CAP* 100 MG PO PRN (03:35)
[2017-08-15] MEDS: Aspirin EC Low Dose* 81 MG TAB.EC PO SCH (08:10)
[2017-08-15] MEDS: Omeprazole CAP* 20 MG PO SCH (08:10)
[2017-08-15] MEDS: Metoprolol Tartrate TAB* 25 MG PO SCH (08:11)
[2017-08-15] MEDS: Apixaban* 2.5 MG TAB PO SCH (08:11)
[2017-08-15] MEDS: guaiFENesin ER TAB 600 MG PO SCH (08:11)
[2017-08-15] MEDS: amLODIPine TAB* 5 MG PO SCH (08:11)
[2017-08-15] MEDS: Sertraline* 100 MG TAB PO SCH (08:11)
[2017-08-15] MEDS: Atorvastatin* 80 MG TAB PO SCH (08:12)
--- NOTE | 2017-08-15 10:04 | PN ---
Subjective Date of Service: 08/15/17 Interval History: Mr. Velazquez states that he is feeling better today. He is off oxygen and ambulating independently in his room without significant SOB or ORO. He denies chest pain. His abdomen is distended and soft but he has no nausea, vomiting, or diarrhea. He is tolerating oral intake well. He has had at least two bowel movements since admission. Objective Active Medications: Acetaminophen (Tylenol Tab*) 650 mg PO Q6H PRN Albuterol/Ipratropium (Duoneb (Albuterol 2.5 Mg/Ipratropium 0.5 Mg)) 1 neb INH Q4H PRN Amlodipine Besylate (Norvasc Tab*) 10 mg PO QAM [facility] Apixaban (Eliquis) 2.5 mg PO BID KAITLYNN Aspirin (Aspirin Ec Low Dose*) 81 mg PO QAM [facility] Atorvastatin Calcium (Lipitor*) 80 mg PO QAM [facility] Benzonatate (Tessalon Cap*) 100 mg PO BID PRN Guaifenesin (Mucinex*) 1,200 mg PO BID KAITLYNN Ceftriaxone Sodium 1 gm/ (Dextrose) 50 mls @ 200 mls/hr IVPB Q24H [facility] Sodium Chloride (Ns 0.9% 1000 Ml*) 1,000 mls @ 125 mls/hr IV PER RATE KAITLYNN Azithromycin 250 mg/ Sodium (Chloride) 250 mls @ 250 mls/hr IVPB Q24H [facility] Melatonin (Melatonin (Nf)) 3 mg PO BEDTIME PRN Metoprolol Tartrate (Lopressor Tab*) 25 mg PO BID KAITLYNN Omeprazole (Prilosec Cap*) 20 mg PO DAILY KAITLYNN Ondansetron HCl (Zofran Inj*) 4 mg IV Q6H PRN Sertraline HCl (Zoloft*) 150 mg PO QAM [facility] Simethicone (Mylicon Tab*) 80 mg PO Q6H PRN Sodium Chloride (Sodium Chloride 0.65% Nasal [place]*) 1 spray BOTH NARES Q4H PRN Vital Signs: Temp Pulse Resp BP Pulse Ox 98.1 F 16 18 123/58 94 08/15/17 07:36 08/15/17 07:56 08/15/17 08:00 08/15/17 07:36 08/15/17 08:00 Oxygen Devices in Use Now: None Appearance: Male lying in bed in NAD Eyes: No Scleral Icterus Ears/Nose/Mouth/Throat: Mucous Membranes Moist Neck: Trachea Midline Respiratory: Symmetrical Chest Expansion and Respiratory Effort, Clear to Auscultation Cardiovascular: NL Sounds; No Murmurs; No JVD, No Edema Abdominal: - - Soft, nontender, distended, BS + Lymphatic: No Cervical Adenopathy Extremities: No Edema Skin: No Rash or Ulcers Neurological: Alert and Oriented x 3, NL Muscle Strength and Tone Nutrition: Taking PO's Result Diagrams: 08/14/17 05:31 08/14/17 05:31 Additional Lab and Data: . Microbiology and Other Data: . Assess/Plan/Problems-Billing Assessment: Mr. Velazquez is an 82 yo M with a PMH of CAD, afib, COPD, and lung cancer with right lobectomy who was admitted on 08/13/17 with sepsis secondary to community acquired pneumonia. - Patient Problems (1) Sepsis Comment: - Resolved. (2) Pneumonia Comment: - Resolving. - Flu negative. Strep pneumo and legionella urine antigens pending. Blood and sputum cultures pending. - Continue ceftin and azithromcyin. - Duonebs prn. (3) CKD (chronic kidney disease) Comment: - BUN/Cr elevated above baseline. - Oral hydration encouraged. (4) PAF (paroxysmal atrial fibrillation) Comment: - Remains in SR. - Continue metoprolol. - Continue apixaban. (5) CAD (coronary artery disease) Comment: - Asymptomatic. - Continue ASA, atorvastatin, and metoprolol. Hold lisinopril with relative hypotension. (6) COPD (chronic obstructive pulmonary disease) Comment: - No evidence of exacerbation. - Duonebs prn. (7) HTN (hypertension) Comment: - SBP 90s. - Continue metoprolol with hold parameters. - Hold lisinopril/hctz until follow up with PCP, resume amlodipine. (8) HLD (hyperlipidemia) Comment: - Continue atorvastatin. (9) DVT prophylaxis Comment: - Eliquis. (10) Full code status Comment: - Confirmed. Status and Disposition: Inpatient with expected LOS > 2 days with critical illness. Discharge to home.
[2017-08-15 13:11] VITALS: BP 115/75
--- NOTE | 2017-08-16 10:38 | DS ---
CC: Dr. Zarco * [facility] MEDICINE DISCHARGE SUMMARY: DATE OF ADMISSION: 08/13/17 DATE OF DISCHARGE: 08/15/17 PRIMARY CARE PHYSICIAN: Dr. Zarco. ATTENDING PHYSICIAN: Dr. Abdi Schmidt * (dictation provided by Precious Velasquez NP). PRIMARY DIAGNOSES: 1. Sepsis. 2. Pneumonia. SECONDARY DIAGNOSES: 1. Atrial fibrillation. 2. Lung cancer with lobectomy. 3. COPD. 4. Hypertension. 5. Hyperlipidemia. 6. Depression. 7. Coronary artery disease with stent. 8. Prostate cancer. 9. Colon cancer. MEDICATIONS AT THE TIME OF DISCHARGE: 1. Tiotropium 1 cap inhale daily. 2. Sertraline 150 mg p.o. q.a.m. 3. Omeprazole 20 mg p.o. daily. 4. Nitroglycerin 0.4 mg sublingually q. 5 minutes p.r.n. 5. Metoprolol tartrate 25 mg p.o. b.i.d. 6. Atorvastatin 80 mg p.o. q.a.m. 7. Apixaban 2.5 mg p.o. b.i.d. 8. Amlodipine 10 mg p.o. q.a.m. 9. Aspirin 81 mg p.o. q.a.m. albuterol inhaled q. 4 hours p.r.n. 10. Guaifenesin ER 1200 mg p.o. b.i.d. p.r.n. 11. Cefuroxime 500 mg p.o. b.i.d. x5 days. 12. Benzonatate 100 mg p.o. b.i.d. p.r.n. 13. Azithromycin 250 mg p.o. daily x3 days. HOSPITAL COURSE: Mr. Velazquez is an 82-year-old male with a past medical history of lung cancer with lobectomy on the right who presented to the hospital on 08/13/17 with concern for cough and fever. Please see the dictated H and P by myself for complete details. In brief, the patient's family reported that he became unwell the day prior to admission with sudden onset of fevers and chills. Throughout the day, he had cough and was encouraged to come to the emergency room but he refused. On the day of admission, when he had a chest x-ray which showed right-sided pneumonia read as "chronic pleural and parenchymal abnormalities, right chest, with volume loss; suspect superimposed post infiltrate with increased consolidative change." His labs showed a white blood cell count of 18.9, ESR 52, CRP 391.49, procalcitonin of 53.4. He had acute on chronic kidney injury with BUN and creatinine elevated. Creatinine was 2.66. BUN was 52. He was satting well on 2 L nasal cannula. Mr. Velazquez's sepsis resolved with antibiotics and IV fluids. He was transitioned after monitoring in the ICU overnight onto the medical floor. He is not requiring any oxygen and is not hypoxic on room air. He is ambulating in his room independently. His BUN and creatinine have improved somewhat though not at baseline with BUN 48, creatinine 1.96. He was well hydrated in the hospital, but I think he deserves encouragement for p.o. hydration, which I have done. Mr. Velazquez is medically stable for discharge to home. He will need to follow up closely with Dr. Zarco. During this hospitalization, the patient' s lisinopril and hydrochlorothiazide were held due to his relative hypotension and acute on chronic kidney injury. I recommended that he follow up with Dr. Zarco before resuming lisinopril or hydrochlorothiazide. DISPOSITION: Home. DIET: Low fat, low salt. ACTIVITY: As tolerated. FOLLOWUP PLANS: Please follow up with Dr. Zarco in 1 to 2 weeks. TIME SPENT: Approximately 60 minutes was spent on the discharge of this patient , more than half the time was spent with the patient at the bedside reviewing the events leading up to this hospitalization, performing the physical examination and reviewing my plan of care. PRECIOUS VELASQUEZ NP [id number]/[facility] #: [id number] COLTEN
== END 2017-08-15 15:22 | disposition home or self-care (01) | DRG 871 ==
LOC: ED 15:06 → ICU 16:53 → MEDTELE 08-14 15:30
PROVIDERS: ADMIT Internal Medicine; ATTEND Internal Medicine
DX: A41.9 Sepsis, unspecified organism (principal); J18.9 Pneumonia, unspecified organism; N17.9 Acute kidney failure, unspecified; I48.91 Unspecified atrial fibrillation; J44.9 Chronic obstructive pulmonary disease, unspecified; I13.10 Hypertensive heart and chronic kidney disease without heart failure, with stage 1 through stage 4 chronic kidney disease, or unspecified chronic kidney disease; N18.9 Chronic kidney disease, unspecified; E78.5 Hyperlipidemia, unspecified; I25.10 Atherosclerotic heart disease of native coronary artery without angina pectoris; F32.9 Major depressive disorder, single episode, unspecified; Z95.5 Presence of coronary angioplasty implant and graft; Z85.46 Personal history of malignant neoplasm of prostate; Z85.038 Personal history of other malignant neoplasm of large intestine; Z85.118 Personal history of other malignant neoplasm of bronchus and lung; Z79.82 Long term (current) use of aspirin; Z79.899 Other long term (current) drug therapy; Z80.0 Family history of malignant neoplasm of digestive organs; Z87.891 Personal history of nicotine dependence
CPT/HCPCS: 36415; 71045; 74018; 80048; 80053; 81003; 81015; 82550; 83605; 83735; 83880; 84145; 84484; 85025; 85384; 85610; 85652; 85730; 86140; 87040; 87070; 87077; 87086; 87205; 87502; 87641; 87899; 93005; 94760; 99284; A9270-GY; J0456; J0696; J2060

== ENCOUNTER 2018-02-24 20:51 | Emergency (ER) | payer MEDICARE, MEDICAID ==
[2018-02-24 21:00] VITALS: BP 122/75
--- NOTE | 2018-02-24 21:12 | UC ---
Skin Complaint HPI - HPI Summary HPI Summary: A 82 y/o male accompanied by his presents to [facility] UC c/o diffuse rash and itching reaching 3/10 in severity. As per triage, "C/O RASH ON BACK/TRUNK/ARMS X1 WEEK. + ITCHING". The patient's Cymraes is limited, however, his was able to translate. According to the patient, he is experiencing diffuse body rash that is itching. Denies any fevers. As per , she does not know the time on onset as it was just noticed today. She is unsure as the patient never stated anything to her and found out recently. PMHx of shingles (couple years ago), lung cancer, prostate cancer, bladder cancer and heart stent. No known allergies. Patient had no medication today for symptoms. - History of Current Complaint Chief Complaint: UCRash Time Seen by Provider: 02/24/18 21:03 Stated Complaint: RASH Hx Obtained From: Patient, Family/Joggle [employer] Operator - Onset/Duration: Still Present, Other - Unknown time of onset. Timing: Constant Onset Severity: Mild Current Severity: Mild Pain Intensity: 3 Pain Scale Used: 0-10 Numeric Location: Diffuse Character: Redness Aggravating Factor(s): Nothing Alleviating Factor(s): Nothing Associated Signs & Symptoms: Positive: Rash - With itching - Allergy/Home Medications Allergies/Adverse Reactions: Allergies Allergy/AdvReac Type Severity Reaction Status Date / Time No Known Allergies Allergy Verified 02/24/18 21:00 Home Medications: Home Medications Nasal [place]* 02/24/18 [History] Review of Systems Constitutional: Negative Skin: Rash - With itching Eyes: Negative ENT: Negative Respiratory: Negative Cardiovascular: Negative Gastrointestinal: Negative Genitourinary: Negative Motor: Negative Neurovascular: Negative Musculoskeletal: Negative Neurological: Negative Psychological: Negative Is Patient Immunocompromised?: No All Other Systems Reviewed And Are Negative: Yes PMH/Surg Hx/FS Hx/Imm Hx Cardiovascular History: Other - STENT Other Cardiovascular History: . Cancer History: Lung Cancer, Prostate Cancer, Other - Bladder cancer Other Cancer History: . - Surgical History Surgical History: Yes Surgery Procedure, Year, and Place: right LUNG LOBECTOMY. HERNIA repair. coronary artery stent placement. rectal polyp removed - Family History Known Family History: Positive: Hypertension, Diabetes, Other - HLD, CVA - Social History Alcohol Use: None Substance Use Type: None Smoking Status (MU): Former Smoker Amount Used/How Often: smoked since 17 years When Did the Patient Quit Smoking/Using Tobacco: 2004 - Immunization History Most Recent Influenza Vaccination: fall 2016 Most Recent Tetanus Shot: unknown Most Recent Pneumonia Vaccination: 2013 Physical Exam - Summary Physical Exam Summary: General: well-appearing, no pain distress Skin: Raise erythematous rash on left medial elbow, right posterior thigh and right flank. On the right flank there is a patchy distribution and appears to be dermatomal, no discharge, vesicle on right flank. Head: normal Eyes: EOMI, BARI ENT: normal Neck: supple, nontender Respiratory: CTA, breath sounds present Cardiovascular: RRR Abdomen: soft, nontender Bowel: present Musculoskeletal: normal, strength/ROM intact Neurological: sensory/motor intact, A&O x3 Psychological: affect/mood appropriate Triage Information Reviewed: Yes Vital Signs: Initial Vital Signs Temp 97.3 F 02/24/18 20:56 Pulse 66 02/24/18 20:56 Resp 16 02/24/18 20:56 BP 122/75 02/24/18 20:56 Pulse Ox 98 02/24/18 20:56 Vital Signs Reviewed: Yes Course/Dx - Course Course Of Treatment: Medications reviewed. Allergies noted. THE AREAS OF RASH APPEAR TO BE INSECT BITES WITH SURROUNDING ERYTHEMA/CELLULITIS. ON THE RIGHT FLANK, THEY ARE IN A DERMATOMAL DISTRIBUTION; THEREFORE WILL TREAT WITH ABX AND FOR SHINGLES. F/U PMD; RECHECK SOONER IF WORSE. - Diagnoses Provider Diagnoses: RASH. SHINGLES. CELLULITIS Discharge - Sign-Out/Discharge Documenting (check all that apply): Patient Departure - DISCHARGE All imaging exams completed and their final reports reviewed: No Studies - Discharge Plan Condition: Stable Disposition: HOME Prescriptions: Cephalexin CAP* [Keflex CAP*] 500 mg PO QID #38 cap Mupirocin 1 applic TOPICAL TID #22 gm Valacyclovir HCl [Valacyclovir] 1 gm PO TID #21 tab Patient Education Materials: Shingles (ED), Cellulitis (ED), Acute Rash (ED) Referrals: [facility] PHYSICIAN REFERRAL [Outside] Additional Instructions: FOLLOW UP WITH YOUR DOCTOR. GET RECHECKED FOR ANY WORSENING OF YOUR CONDITION; FEVER, YOU FEEL ILL, SPREAD OF THE RASH OR QUESTIONS OR CONCERNS. - Billing Disposition and Condition Condition: STABLE Disposition: Home - Attestation Statements Document Initiated by Yokastaibe: Yes Documenting Scribe: Oni Wilson Provider For Whom Devante is Documenting (Include Credential): Papa Armendariz MD Scribe Attestation: I, Oni Wilson, scribed for Papa Armendariz MD on 02/24/18 at 2134. Scribe Documentation Reviewed: Yes Provider Attestation: The documentation as recorded by the Oni meeks accurately reflects the service I personally performed and the decisions made by me, Papa Armendariz MD
[2018-02-24] MEDS ORDERED: Cephalexin CAP* 500 MG PO ONE ×2 (21:13)
== END 2018-02-24 21:32 | disposition home or self-care (01) ==
LOC: UCEAST 20:51
DX: R21 Rash and other nonspecific skin eruption (principal); B02.9 Zoster without complications; L03.311 Cellulitis of abdominal wall; Z87.891 Personal history of nicotine dependence
CPT/HCPCS: 99212; A9270-GY; G0463

== ENCOUNTER 2018-05-04 11:31 | Day surgery (SDC) | payer MEDICARE, MEDICAID ==
[~2018-05-04 11:31] MED LIST changes: +Acetaminophen TAB* 325 MG PO PRN; -Famotidine IV* 10 MG/ML 2 ML (20 mg) IV ONE; -Morphine INJ* 2 MG/ML 1 ML CARPUJECT IV PRN; -PROCHLORPERAZINE INJ 5 MG/ML 2 ML VIAL IV PRN; -fentaNYL* 50 MCG/ML 2 ML VIAL (100 MCG VIAL) IV PRN; -oxyCODONE/Acetamin 5/325 MG* TAB PO PRN
[2018-05-04] MEDS ORDERED: fentaNYL* 50 MCG/ML 2 ML VIAL (100 MCG VIAL) ONE (13:22)
[2018-05-04 14:20] VITALS: BP 99/51
[2018-05-04] MEDS ORDERED: acetaZOLAMIDE TAB* 250 MG ONE (15:17)
[2018-05-04] MEDS ORDERED: Ketorolac 0.5% OPHTH (NF) 0.5 % 5 ML BTL ONE (15:17)
[2018-05-04] MEDS ORDERED: Phenylephrine 2.5% OPTH.SOL* 2 ML BTL ONE (15:17)
[2018-05-04] MEDS ORDERED: Lidocaine 2% EPI 1:200000 MPF*10-20 ML VIAL ONE (15:17)
[2018-05-04] MEDS ORDERED: Cyclopentolate 1% OPTH.SOL* 2 ML BTL ONE (15:17)
[2018-05-04] MEDS ORDERED: Lidocaine 1%* 5 ML VIAL ONE (15:17)
[2018-05-04] MEDS ORDERED: Povidone Iodine 5% OPTH* 30 ML BTL ONE (15:17)
[2018-05-04] MEDS ORDERED: Neomycin/Polymy/Dex OPTH.SUSP* MAXITROL 0.1% 5 ML ONE (15:17)
[2018-05-04] MEDS ORDERED: Proparacaine 0.5% OPHTH.SOL* 15 ML BTL ONE (15:18)
--- NOTE | 2018-05-05 07:11 | OP ---
DATE OF OPERATION: 05/04/[address] [facility] DATE OF : 31 SURGEON: Peterson Wall M.D. PREOPERATIVE DIAGNOSIS: Cataract, left eye. POSTOPERATIVE DIAGNOSIS: Cataract, left eye. OPERATIVE PROCEDURE: Extracapsular cataract extraction with intraocular lens implant left eye and CTR. DESCRIPTION OF PROCEDURE: The patient was brought to the operating room after being given 1/2% Alcaine with epinephrine drops in the preoperative area. The eye was prepped and draped in the usual sterile fashion. Sterile drape and eyelid speculum were placed. Again, topical 1/2% Alcaine with epinephrine was given. A paracentesis incision was made at the 3 o'clock position with the No.75 blade. Clear cornea incision 2.2 x 2.2-mm was created at the 6 o'clock position starting at the anterior limbus using the 2.2-mm keratome. The anterior chamber was irrigated with 0.4 mL of 1% non-preservative intracameral lidocaine and filled with DisCoVisc. A capsulorrhexis was completed using the cystotome and the Utrata forceps. Hydrodissection was performed with balanced salt solution. The lens nucleus was removed with the Phacoemulsification handpiece without incident. Cortex was removed with the irrigation-aspiration handpiece. The capsular bag was re-inflated using DisCoVisc, and an SN60WF 24.5 implant followed by a capsular tension ring, ACTR 11 inserted with its shooter. The irrigation-aspiration handpiece was used to remove all residual DisCoVisc. The eye was refilled with balanced salt solution and the wound checked and found to be watertight. Topical Maxitrol drops were given. INDICATION FOR COMPLEX CATARACT SURGERY: Pseudoexfoliation requiring capsular tension device. [id number]/[facility] #: [id number] MTDD
== END 2018-05-04 14:30 | disposition home or self-care (01) ==
LOC: OREAST 11:31
PROVIDERS: ATTEND Specialist
DX: H25.12 Age-related nuclear cataract, left eye (principal); H40.1434 Capsular glaucoma with pseudoexfoliation of lens, bilateral, indeterminate stage; I10 Essential (primary) hypertension; M81.0 Age-related osteoporosis without current pathological fracture; I48.91 Unspecified atrial fibrillation; I25.10 Atherosclerotic heart disease of native coronary artery without angina pectoris; Z85.118 Personal history of other malignant neoplasm of bronchus and lung; Z85.46 Personal history of malignant neoplasm of prostate; Z85.51 Personal history of malignant neoplasm of bladder; J44.9 Chronic obstructive pulmonary disease, unspecified; E78.5 Hyperlipidemia, unspecified; Z87.891 Personal history of nicotine dependence
CPT/HCPCS: A9270-GY; J3010; V2632

== ENCOUNTER → 2018-05-11 08:21 | Day surgery (SDC) | payer MEDICARE, MEDICAID ==
[~2018-05-11 08:21] MED LIST changes: +Cyclopentolate 1% OPTH.SOL* 2 ML BTL ONE; +Ketorolac 0.5% OPHTH (NF) 0.5 % 5 ML BTL ONE; +Lidocaine 1%* 5 ML VIAL ONE; +Lidocaine 2% EPI 1:200000 MPF*10-20 ML VIAL ONE; +Metoprolol Tartrate TAB* 25 MG ONE; +Midazolam* 1 MG/ML 2 ML VIAL (2 MG) ONE; +Neomycin/Polymy/Dex OPTH.SUSP* MAXITROL 0.1% 5 ML ONE; +Phenylephrine 2.5% OPTH.SOL* 2 ML BTL ONE; +Povidone Iodine 5% OPTH* 30 ML BTL ONE; +Proparacaine 0.5% OPHTH.SOL* 15 ML BTL ONE; +acetaZOLAMIDE TAB* 250 MG ONE
[2018-05-11 10:32] VITALS: BP 104/56
--- NOTE | 2018-05-11 13:07 | OP ---
DATE OF OPERATION: 05/11/2018. DATE OF : 1935. SURGEON: Petreson Wall M.D. 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 OPERATIVE PROCEDURE: Extracapsular cataract extraction with intraocular lens implant and CTR right e ye. PROCEDURE: The patient was brought to the operating room after being given 1/2% Alcaine with epineph rine drops in the preoperative area. The eye was prepped and draped in the usual sterile fashion. S terile drape and eyelid speculum were placed. Again, topical 1/2% Alcaine with epinephrine was given . A paracentesis incision was made at the 9 o'clock position with the No.75 blade. Clear cornea inc ision 2.2 x 2.2-mm was created at the 12 o'clock position starting at the anterior limbus using the 2 .2-mm keratome. The anterior chamber was irrigated with 0.4 mL of 1% non-preservative intracameral l idocaine and filled with DisCoVisc. A capsulorrhexis was completed using the cystotome and the Utrat a forceps. Hydrodissection was performed with balanced salt solution. The lens nucleus was removed w ith the Phacoemulsification handpiece without incident. Cortex was removed with the irrigation-aspir ation handpiece. The capsular bag was re-inflated using DisCoVisc and an SN60WF 24.5 implant was ins erted with the shooter, followed by a CTR11 inserted in the capsular bag with its shooter. The irrig ation- aspiration handpiece was used to remove all residual DisCoVisc. The eye was refilled with bal anced salt solution and the wound checked and found to be watertight. Topical Maxitrol drops were gi jesus. [id number]/[facility] #: [id number]
== END | disposition home or self-care (01) ==
LOC: OREAST 08:21
PROVIDERS: ATTEND Specialist
DX: H25.11 Age-related nuclear cataract, right eye (principal); H40.1434 Capsular glaucoma with pseudoexfoliation of lens, bilateral, indeterminate stage; I48.91 Unspecified atrial fibrillation; Z79.01 Long term (current) use of anticoagulants; E11.9 Type 2 diabetes mellitus without complications; I25.10 Atherosclerotic heart disease of native coronary artery without angina pectoris; Z95.5 Presence of coronary angioplasty implant and graft; I10 Essential (primary) hypertension; Z85.118 Personal history of other malignant neoplasm of bronchus and lung; Z85.46 Personal history of malignant neoplasm of prostate
CPT/HCPCS: A9270-GY; J2250; V2632

== ENCOUNTER 2018-09-10 21:50 | Emergency (ER) | payer MEDICARE, MEDICAID ==
[2018-09-10 22:02] VITALS: BP 141/66
--- NOTE | 2018-09-10 22:56 | UC ---
Truncal Trauma HPI - HPI Summary HPI Summary: Patient was grocery shopping with his granddaughter about 30 minutes [employer] when he slipped and fell landing on his left rib cage. Comes in with mild pain. Denies shortness of breath, chest pain, fever. Accompanied by daughter and granddaughter who are concerned about rib fracture. - History Of Current Complaint Chief Complaint: UCTrauma Stated Complaint: RIB INJURY Time Seen by Provider: 09/10/18 22:31 Hx Obtained From: Patient, Family/Family Sociologist - GRANDDAUGHTER Onset/Duration: Sudden Onset, Lasting Minutes, Still Present Onset Of Pain: Immediate Severity Initially: Moderate Severity Currently: Mild Pain Intensity: 0 Pain Scale Used: 0-10 Numeric Mechanism Of Injury: Fall From A Standing Position Aggravating Factor(s): Nothing Alleviating factor(s): Nothing Associated Signs And Symptoms: Negative: SOB, Chest Pain, Cough, Fever, Nausea - Allergies/Home Medications Allergies/Adverse Reactions: Allergies Allergy/AdvReac Type Severity Reaction Status Date / Time No Known Allergies Allergy Verified 09/10/18 22:02 PMH/Surg Hx/FS Hx/Imm Hx Endocrine History: Diabetes Cardiovascular History: Cardiac Disease, Hypertension Respiratory History: COPD Cancer History: Lung Cancer, Colorectal Cancer, Prostate Cancer Other Cancer History: BLADDER CANCER, SKIN CANCER - Surgical History Surgical History: Yes Surgery Procedure, Year, and Place: right lung lobectomy 2004 - [place]. hernia repair 1989 [facility]. cardiac stent place 2012[place] [facility] [place] - Family History Known Family History: Positive: Hypertension, Diabetes, Other - HLD, CVA - Social History Alcohol Use: None Substance Use Type: None Smoking Status (MU): Former Smoker Type: Cigarettes Amount Used/How Often: 2 ppd for 30 years When Did the Patient Quit Smoking/Using Tobacco: 2004 - Immunization History Most Recent Influenza Vaccination: fall 2016 Most Recent Tetanus Shot: unknown Most Recent Pneumonia Vaccination: 2013 Review of Systems All Other Systems Reviewed And Are Negative: Yes Constitutional: Positive: Negative Skin: Positive: Negative Respiratory: Positive: Negative Cardiovascular: Positive: Negative Gastrointestinal: Positive: Negative Musculoskeletal: Positive: Other: - LEFT RIB PAIN Physical Exam Triage Information Reviewed: Yes Appearance: Well-Appearing, No Pain Distress, Well-Nourished Vital Signs: Initial Vital Signs Temp 98.1 F 09/10/18 21:56 Pulse 83 09/10/18 21:56 Resp 16 09/10/18 21:56 BP 141/66 09/10/18 21:56 Pulse Ox 98 09/10/18 21:56 Vital Signs Reviewed: Yes Eyes: Positive: Conjunctiva Clear ENT: Positive: Hearing grossly normal Neck: Positive: Supple Respiratory Exam: Normal Cardiovascular Exam: Normal Abdomen Description: Positive: Soft Musculoskeletal: Positive: No Edema, Other: - MINIMALLY TENDER LEFT ANTERIOR RIB CAGE Neurological: Positive: Alert Psychological: Positive: Age Appropriate Behavior Skin: Negative: Rashes Diagnostics - Radiology LEFT RIB XRAYS Radiology Interpretation Completed By: ED Physician Summary of Radiographic Findings: NO FRACTURE Truncal Trauma Course/Dx - Course Course Of Treatment: NO DEFINITE FRACTURE ON LEFT RIB X-RAYS ON MY INITIAL INTERPRETATION. OFFICIAL RADIOLOGY READ PENDING. POSTSURGICAL CHANGES EVIDENT IN THE RIGHT LUNG. ADVISED PATIENT AND FAMILY THAT EVEN IF THERE IS A FRACTURED RIB THERE IS NO CHANGE IN MANAGEMENT. INCENTIVE SPIROMETER PROVIDED. PATIENT ENCOURAGED TO TAKE DEEP BREATHS SEVERAL TIMES DAILY. TYLENOL NEEDED FOR DISCOMFORT. COUNSELED ON RED FLAG SIGNS INCLUDING INCREASING PAIN, FEVER, EXPANDING BRUISING , FIRM ABDOMEN. PATIENT TO GO TO THE ER WITHOUT FAIL IF HE DEVELOPS ANY OF THESE OR ANY OTHER CONCERNING SYMPTOMS. - Differential Dx/Diagnosis Provider Diagnosis: Contusion of rib on left side Discharge - Sign-Out/Discharge Documenting (check all that apply): Patient Departure All imaging exams completed and their final reports reviewed: No - Discharge Plan Condition: Stable Disposition: HOME Patient Education Materials: Rib Contusion (ED) Referrals: Mauro Restrepo MD [Primary Care Provider] - If Needed Additional Instructions: NO CLEAR FRACTURE ON X-RAY TODAY ON MY INITIAL INTERPRETATION. WE WILL CALL YOU TOMORROW IF THE RADIOLOGY READ DIFFERS. RIB INJURIES AND FRACTURES: You have been diagnosed as having either bruised or broken ribs. These two injuries are treated in the same way. It will usually take four to six weeks for these injured ribs to heal. Sometimes, rib belts or anesthetic injections of the chest wall help reduce the pain. You should cough or take a deep breath at least every hour or two to prevent lung complications. You should not engage in any strenuous physical activity until released by your physician. The usual rule is "if it hurts, don't do it." Rib fractures can lead to serious lung complications including lung collapse, hemorrhage, and pneumonia. You should go to the ED if any of the following occur: (1) Fever or chills. (2) Persistent cough, coughing up blood, or shortness of breath. (3) Increasing pain. (4) Weakness, lightheadedness, or fainting. Be sure to take slow deep breaths several times daily to help keep your lungs expanded. GO TO THE ER WITHOUT FAIL IF YOU DEVELOP INCREASING PAIN, BRUISING, ABDOMINAL SWELLING/DISTENTION, FEVER OR ANY OTHER CONCERNING SYMPTOMS. - Billing Disposition and Condition Condition: STABLE Disposition: Home
--- NOTE | 2018-09-11 07:43 | UC ---
- Progress Note Progress Note: Final report reviewed for chest x-ray/left rib: NO DISPLACED RIB FRACTURE OR PNEUMOTHORAX. Wet read correct, no change in plan Course/Dx - Diagnoses Provider Diagnoses: Contusion of rib on left side Discharge - Sign-Out/Discharge Documenting (check all that apply): Post-Discharge Follow Up All imaging exams completed and their final reports reviewed: Yes - Discharge Plan Condition: Stable Disposition: HOME Patient Education Materials: Rib Contusion (ED) Referrals: Mauro Restrepo MD [Primary Care Provider] - If Needed Additional Instructions: NO CLEAR FRACTURE ON X-RAY TODAY ON MY INITIAL INTERPRETATION. WE WILL CALL YOU TOMORROW IF THE RADIOLOGY READ DIFFERS. RIB INJURIES AND FRACTURES: You have been diagnosed as having either bruised or broken ribs. These two injuries are treated in the same way. It will usually take four to six weeks for these injured ribs to heal. Sometimes, rib belts or anesthetic injections of the chest wall help reduce the pain. You should cough or take a deep breath at least every hour or two to prevent lung complications. You should not engage in any strenuous physical activity until released by your physician. The usual rule is "if it hurts, don't do it." Rib fractures can lead to serious lung complications including lung collapse, hemorrhage, and pneumonia. You should go to the ED if any of the following occur: (1) Fever or chills. (2) Persistent cough, coughing up blood, or shortness of breath. (3) Increasing pain. (4) Weakness, lightheadedness, or fainting. Be sure to take slow deep breaths several times daily to help keep your lungs expanded. GO TO THE ER WITHOUT FAIL IF YOU DEVELOP INCREASING PAIN, BRUISING, ABDOMINAL SWELLING/DISTENTION, FEVER OR ANY OTHER CONCERNING SYMPTOMS. - Billing Disposition and Condition Condition: STABLE Disposition: Home
== END 2018-09-10 23:32 | disposition home or self-care (01) ==
LOC: UCEAST 21:50
DX: S20.212A Contusion of left front wall of thorax, initial encounter (principal); I10 Essential (primary) hypertension; J44.9 Chronic obstructive pulmonary disease, unspecified; E11.9 Type 2 diabetes mellitus without complications; W18.39XA Other fall on same level, initial encounter; Z87.891 Personal history of nicotine dependence; Y93.89 Activity, other specified; Y92.513 Shop (commercial) as the place of occurrence of the external cause
CPT/HCPCS: 99212; G0463

== ENCOUNTER 2019-02-24 15:32 | Emergency (ER) | payer MEDICARE, MEDICAID ==
[2019-02-24 15:53] VITALS: BP 100/58
--- NOTE | 2019-02-24 15:56 | UC ---
Cardiac HPI - HPI Summary HPI Summary: 83 yo male brought in to after episode of dyspnea and chest pain that occurred after a 20-30 minute walk According to daughter he appeared pale currently no CP or SOB He had palpitations during episode hx AF (not compliant with eliqus) hx colon ca/lung ca/colon ca hx cad with stents - History of Current Complaint Stated Complaint: SOB, CHEST PAIN Time Seen by Provider: 02/24/19 15:46 Hx Obtained From: Patient Onset/Duration: Sudden Onset Initial Severity: Moderate Current Severity: None Chest Pain Location: Diffuse Character: Tightness, Pressure/Squeezing Aggravating Factor(s): Exertion Alleviating Factor(s): Spontaneous Resolution Associated Signs & Symptoms: Positive: Chest Pain, SOB, Palpitations - Allergy/Home Medications Allergies/Adverse Reactions: Allergies Allergy/AdvReac Type Severity Reaction Status Date / Time No Known Allergies Allergy Verified 02/24/19 15:53 PMH/Surg Hx/FS Hx/Imm Hx Previously Healthy: Yes Cardiovascular History: Cardiac Disease, Hypertension, Atrial Fibrillation Respiratory History: COPD, Pneumonia Cancer History: Lung Cancer, Colorectal Cancer, Prostate Cancer - Surgical History Surgical History: Yes Surgery Procedure, Year, and Place: right lung lobectomy 2004 - [place]. hernia repair 1989 - [facility]. [facility] stent place 2012? - [facility] - Family History Known Family History: Positive: Hypertension, Diabetes, Other - HLD, CVA - Social History Alcohol Use: None Substance Use Type: None Smoking Status (MU): Former Smoker Type: Cigarettes Amount Used/How Often: 2 ppd for 30 years When Did the Patient Quit Smoking/Using Tobacco: 2004 - Immunization History Most Recent Influenza Vaccination: fall 2016 Most Recent Tetanus Shot: unknown Most Recent Pneumonia Vaccination: 2013 Review of Systems All Other Systems Reviewed And Are Negative: Yes Constitutional: Positive: Fatigue Skin: Positive: Negative Eyes: Positive: Negative ENT: Positive: Negative Respiratory: Positive: Shortness Of Breath - resolved, Cough Cardiovascular: Positive: Chest Pain Gastrointestinal: Positive: Negative Genitourinary: Positive: Negative Motor: Positive: Negative Neurovascular: Positive: Negative Musculoskeletal: Positive: Negative Neurological: Positive: Negative Psychological: Positive: Negative Physical Exam Triage Information Reviewed: Yes Appearance: Well-Appearing, No Pain Distress, Well-Nourished Vital Signs Reviewed: Yes Eyes: Positive: Conjunctiva Clear ENT: Positive: Hearing grossly normal. Negative: Nasal congestion, Nasal drainage, Trismus, Muffled voice, Hoarse voice Neck: Positive: Supple, Nontender, No Lymphadenopathy Respiratory: Positive: Lungs clear, Normal breath sounds, No respiratory distress, No accessory muscle use, Respiratory distress Cardiovascular: Positive: RRR. Negative: Tachycardia, Bradycardia Neurological: Positive: Alert Psychological Exam: Normal Skin Exam: Normal Diagnostics - EKG Cardiac Rhythm: Other Rhythm: New - A-Fluuter 4:1 block Ectopy: None ST Segment: Normal - Assessment/Plan Course Of Treatment: declines EMS transfer states he feels better now D/[place] [facility] [place] [facility] [place] Clinical Impression Provider Diagnosis: Dyspnea on exertion, Chest pain of uncertain etiology, Atrial flutter Discharge ED - Sign-Out/Discharge Documenting (check all that apply): Patient Departure All imaging exams completed and their final reports reviewed: No Studies - Discharge Plan Condition: Guarded Disposition: TRANS HIGHER LVL OF CARE FAC Referrals: Mauro Restrepo MD [Primary Care Provider] - Additional Instructions: TO ER straight from here you had four baby aspirin here I spoke to the ER doctor and they are expecting you - Billing Disposition and Condition Condition: GUARDED Disposition: Trans Higher Lvl of Care Fac
[2019-02-24] MEDS ORDERED: Aspirin 81 mg CHEW TAB* 81 MG TAB.CHEW PO ONE (16:04)
--- OUTSIDE RECORDS SUMMARY | 2019-02-24 16:20 | XMS REPORT | Summary of Care ---
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 Encounter Details Date Type Department Care Team Description 02/14/2019 Office Visit [facility] Chaz Restrepo DO Insomnia, unspecified type (Primary Dx); Practice [address] [facility] Dementia with behavioral disturbance, unspecified dementia type [address] [place] [address] [place], [place] [id number] Allergies Active Allergy Reactions Severity Noted Date Comments No Known Drug Allergy 07/19/2007 documented as of this encounter (statuses as of 02/14/2019) Medications Medication Sig Dispensed Refills Start Date End Date Status albuterol Take 2 Puffs by 1 Inhaler 3 07/04/2014 Active (PROVENTIL,VENTOLIN) inhalation EVERY 90 mcg/act FOUR HOURS (wheezing). SPIRIVA HANDIHALER 18 INHALE THE CONTENTS 90 Cap 1 11/29/2017 Active MCG Inhalation Cap OF ONE CAPSULE VIA HANDIHALER BY MOUTH EVERY DAY amLodipine (NORVASC) TAKE ONE TABLET BY 90 Tab 3 12/29/2017 Active 10 MG Oral Tab MOUTH EVERY DAY atorvastatin Take 1 Tab by mouth 90 Tab 3 01/12/2018 Active (LIPITOR) 80 MG Oral DAILY. Tab lisinopril-hydrochlor TAKE ONE TABLET BY 90 Tab 3 02/10/2018 Active othiazide MOUTH EVERY DAY (ZESTORETIC, PRINZIDE) 20-12.5 MG Oral TabIndications: Essential hypertension SPIRIVA HANDIHALER 18 INHALE THE CONTENTS 90 Cap 1 05/03/2018 Active MCG Inhalation Cap OF ONE CAPSULE VIA HANDIHALER BY MOUTH EVERY DAY metoprolol Take 1 Tab by mouth 180 Tab 1 2018 Active (LOPRESSOR) 25 MG TWICE DAILY. Oral Tab SM ASPIRIN ADULT LOW TAKE ONE TABLET BY 90 Tab 1 07/14/2018 Active STRENGTH 81 MG Oral MOUTH EVERY MORNING Tab ECIndications: Preventative health care apixaban (ELIQUIS) 5 Take 1 Tab by mouth 180 Tab 1 2018 Active MG Oral Tab TWICE DAILY. Omeprazole 40 MG Oral Take 1 Cap by mouth 90 Cap 3 11/23/2018 Active CAPSULE DELAYED BEFORE BREAKFAST. RELEASE venlafaxine (EFFEXOR TAKE ONE CAPSULE BY 120 Cap 0 02/01/2019 Active XR) 75 MG Oral MOUTH EVERY DAY CAPSULE SR 24 HRIndications: Acute depression quetiapine (SEROQUEL) Take 1 Tab by mouth 60 Tab 0 02/14/2019 Active 25 MG Oral EVERY BEDTIME. TabIndications: Insomnia, unspecified type documented as of this encounter (statuses as of 02/14/2019) Active Problems Problem Noted Date Vitamin B12 deficiency 05/17/2018 Essential hypertension 06/04/2015 PAF (paroxysmal atrial fibrillation) 12/17/2014 BMI 30.0-30.9,adult 09/20/2013 CAD (coronary artery disease) 11/18/2012 Overview: Cardiac Catheterization 11/18/[address] leonidas TOBAR and was found to have a significant lesion in the LAD which was intervened upon using a 2.5*16 Promus FAIZAN. 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 SURGEON: Dr. Jase Prieto. Prostate cancer Overview: PSA 7.65 07/05 biopsy Tere 07/05: [place] grade 6 PSA 14.7 12/03 Treatment casodex/lupron PVD (peripheral vascular disease) Overview: 10/19/11 VL body measure JAVIER IMPRESSIONS: PVR's and JAVIER's of the bilateral lower extremities were performed. The right indicates mild arterial occlsuive disease with an JAVIER of 0.93. The right PT Doppler was biphasic and DP Doppler was triphasic. The left indicates mild-moderate arterial occlusive disease with an JAVIER of 0.69. The left PT and DP Dopplers were biphasic. This appears to be essentially unchanged from previous exam on 09/23/2009. Osteoporosis documented as of this encounter (statuses as of 02/14/2019) Resolved Problems Problem Noted Date Resolved Date Hypertension 06/04/2015 documented as of this encounter (statuses as of 02/14/2019) Immunizations Name Administration Dates Next Due H1N1 Injectable Adult 08/27/2009 Influenza (IM) Preservative Free 04/19/2018, 07/04/2014, 03/28/2013, 03/27/2011, 04/17/2010, 05/17/2008 Influenza Vaccine High Dose 06/11/2017, 03/24/2016, 04/30/2015 Influenza Virus Vaccine - Whole 04/06/2007 PNEUMOCOCCAL POLYSACCHARIDE VACCINE 05/17/2008 Pneumococcal Conjugate(13 Valent) 05/14/2015 documented as of this encounter Social History Tobacco Use Types Packs/Day Years Used Date Former Smoker Cigarettes Smokeless Tobacco: Never Used Alcohol Use Drinks/Week oz/Week Comments Yes 0 Standard drinks or equivalent 0.0 Sex Assigned at Date Recorded Not on file Job Start Date Occupation Industry Not on file Not on file Not on file Travel History Travel Start Travel End No recent travel history available. documented as of this encounter Last Filed Vital Signs Vital Sign Reading Time Taken Comments Blood Pressure 148/78 02/14/2019 9:08 AM EDT Pulse 57 02/14/2019 9:08 AM EDT Temperature - - Respiratory Rate - - Oxygen Saturation 98% 02/14/2019 9:08 AM EDT Inhaled Oxygen Concentration - - Weight 81.2 kg (179 lb 1.6 oz) 02/14/2019 9:08 AM EDT Height 171.5 cm (5' 7.5") 02/14/2019 9:08 AM EDT Body Mass Index 27.64 02/14/2019 9:08 AM EDT documented in this encounter Progress Notes Chaz Restrepo, DO - 02/14/2019 9:00 AM EDT PATIENT: Abel Velazquez : 1935 DATE OF SERVICE: 02/14/2019 CHIEF COMPLAINT: Chief Complaint Patient presents with Follow Up need a medical neccessity letter specified for 24 hour care; memory has deminished and increased behaviors. Subjective HISTORY OF PRESENT ILLNESS: Abel Velazquez is a 83-y.o. male. HPI Feb 2019 I had mmse of 18/30 Ct head was negative Blood work just revealed b12 deficiency and we tried to supplement but memory continues to decline and now behav disturbances. Throws his diaper with stool on carpet and around the house. Keeps walkingup at night and wanders in house Today doesn't know month, date and year Thinks this is hospital Doesn't recall his birthday mmse done by [facility] nurse report given to me by daughter states mmse 7/30 Not sleeping at night Clearly unable to do his ADLs Daughter does not want to put him in dementia facility. They have aide in day time but none at night. Family getting exhausted taking care of him at night. They all work. Often confusion with him Past Medical History: Diagnosis Date AK (actinic keratosis) CAD (coronary artery disease) 10/2012 drug eluted stent LAD Colonic polyps tubular adenoma, colonoscopy COPD DDD (degenerative disc disease) DJD (degenerative joint disease) DM (diabetes mellitus) (HCC) eye 06/09/14 Hyperlipidemia Hypertension Lung cancer (HCC) R lung resection, chronic R pleural effusion Osteoporosis Paroxysmal atrial fibrillation (HCC) HISTORY OF, after pnemothorax Prostate cancer (HCC) Dr. Carranza PVD (peripheral vascular disease) (HCC) Urinary bladder cancer (HCC) 07/19/2007 HISTORY OF History reviewed. No pertinent family history. Current Outpatient Medications Medication Sig albuterol (PROVENTIL,VENTOLIN) 90 mcg/act Take 2 Puffs by inhalation EVERY FOUR HOURS (wheezing). amLodipine (NORVASC) 10 MG Oral Tab TAKE ONE TABLET BY MOUTH EVERY DAY apixaban (ELIQUIS) 5 MG Oral Tab Take 1 Tab by mouth TWICE DAILY. atorvastatin (LIPITOR) 80 MG Oral Tab Take 1 Tab by mouth DAILY. lisinopril-hydrochlorothiazide (ZESTORETIC, PRINZIDE) 20-12.5 MG Oral Tab TAKE ONE TABLET BY MOUTH EVERY DAY metoprolol (LOPRESSOR) 25 MG Oral Tab Take 1 Tab by mouth TWICE DAILY. Omeprazole 40 MG Oral CAPSULE DELAYED RELEASE Take 1 Cap by mouth BEFORE BREAKFAST. quetiapine (SEROQUEL) 25 MG Oral Tab Take 1 Tab by mouth EVERY BEDTIME. SM ASPIRIN ADULT LOW STRENGTH 81 MG Oral Tab EC TAKE ONE TABLET BY MOUTH EVERY MORNING SPIRIVA HANDIHALER 18 MCG Inhalation Cap INHALE THE CONTENTS OF ONE CAPSULE VIA HANDIHALER BYMOUTH EVERY DAY SPIRIVA HANDIHALER 18 MCG Inhalation Cap INHALE THE CONTENTS OF ONE CAPSULE VIA HANDIHALER BYMOUTH EVERY DAY venlafaxine (EFFEXOR XR) 75 MG Oral CAPSULE SR 24 HR TAKE ONE CAPSULE BY MOUTH EVERY DAY No current facility-administered medications for this visit. Allergies Allergen Reactions No Known Drug Allergy Social History Socioeconomic History Marital status: Spouse name: Not on file Number of children: Not on file Years of education: Not on file Highest education level: Not on file Occupational History Not on file Social Needs Financial resource strain: Not on file Food insecurity: Worry: Not on file Inability: Not on file Transportation needs: Medical: Not on file Non-medical: Not on file Tobacco Use Smoking status: Former Smoker Types: Cigarettes Smokeless tobacco: Never Used Substance and Sexual Activity Alcohol use: Yes Alcohol/week: 0.0 standard drinks Drug use: Yes Sexual activity: Not on file Lifestyle Physical activity: Days per week: Not on file Minutes per session: Not on file Stress: Not on file Relationships Social connections: Talks on phone: Not on file Gets together: Not on file Attends confucianism service: Not on file Active member of club or organization: Not on file Attends meetings of clubs or organizations: Not on file Relationship status: Not on file Intimate partner violence: Fear of current or ex partner: Not on file Emotionally abused: Not on file Physically abused: Not on file Forced sexual activity: Not on file Other Topics Concern Not on file Social History Narrative Not on file REVIEW OF SYSTEMS: Review of Systems Constitutional: Negative for fever. Cardiovascular: Negative for chest pain. Gastrointestinal: Negative for abdominal pain. Objective PHYSICAL EXAM: VITALS: BP 148/78 (BP Location: Left arm, Patient Position: Sitting) | Pulse 57 | Ht 5' 7.5" (1.715 m) | Wt 179 lb 1.6 oz (81.2 kg) | SpO2 98% | BMI 27.64 kg/m Body mass index is 27.64 kg/m. Physical Exam Constitutional: No distress. HENT: Head: Normocephalic and atraumatic. Eyes: Conjunctivae are normal. Right eye exhibits no discharge. Left eye exhibits no discharge. No scleral icterus. Cardiovascular: Normal rate. Pulmonary/Chest: Effort normal. Neurological: Appears confused today Skin: He is not diaphoretic. ASSESSMENT / IMPRESSION: ICD-9-CM ICD-10-CM 1. Insomnia, unspecified type 780.52 G47.00 quetiapine (SEROQUEL) 25 MG Oral Tab 2. Dementia with behavioral disturbance, unspecified dementia type 294.21 F03.91 Plan His dementia is worsening. He has marked impairment of his ADLs since last feb 2018. He needs help with ADLs He needs help at night With dementia related disturbances and need for adl help, I think he needs aide 24/. Start seroquelto help but I think he still needs 24/7 supervision by nurse aide. Author: Chaz Restrepo DO 02/14/2019 09:40 documented in this encounter Plan of Treatment Date Type Specialty Care Team Description 05/10/2019 Office Visit Cardiology Anjana Gómez CRNP [address] [address] Health Maintenance Due Date Last Done Comments ZOSTER IMMUNIZATION SERIES 1983 (1 of 2) FALL RISK ASSESSMENT 1998 MEDICARE ANNUAL WELLNESS 01/06/2018 01/06/2017, 01/06/2017, VISIT 04/30/2015, Additional history exists INFLUENZA VACCINE (#1) 2019 04/19/2018, 06/11/2017, 03/24/2016, Additional history exists DIABETES SCREENING 11/23/2019 11/22/2018, 03/31/2018, 10/04/2017, Additional history exists DEPRESSION SCREENING 08/23/2020 Postponed from 1945 (Other) PNEUMOCOCCAL 65+YRS Completed 05/14/2015, 05/17/2008 HPV IMMUNIZATION SERIES Aged Out No longer eligible based on patient's age to complete this topic MENINGOCOCCAL VACCINE IMM Aged Out No longer eligible based on patient's age to complete this topic documented as of this encounter Goals Goal Patient Goal Associated Recent Patient-Stated? Author Type Problems Progress Blood Pressure Blood Pressure Hypertension 148/78 No Carolee, < 140/90 (02/14/2019 Padmini, 9:08 AM EDT) Note: Hypertension Care Plan Based on the patient's clinical history and according to JNC 8 guidelines target blood pressure goal is less than 140/90. Based on the patient's last blood pressure of BP: 132/72 mmHg the patient is at at goal. As your provider, it is important that I advise you regarding: your current medications and help you with any challenges you may face taking your medications as directed (ex. instructions, cost, side effects, and interactions). Important lifestyle changes: diet and dietary sodium reduction your clinical goals and how you can achieve success: weight reduction, exercise plan and diet improvements medication management: adjusted medications as appropriate patient education/self-management tools provided: Yes To successfully manage my Hypertension I will: monitor my blood pressure daily, understanding that my goal is less than 140/ 90 per my healthcare provider's recommendation. I will schedule an appointment with my provider if consistent abnormal readings greater than 160/100. take medications every day as prescribed by my healthcare provider and if unable to take them I will discuss with my provider. monitor for symptoms of chest pain, chest tightness/pressure, irregular heartbeat, persistent dizziness, radiating arm pain, and neck or jaw pain. If any of these symptoms are noticed I will seek medical attention immediately by calling 911 exercise/walk 15 minutes 5 day(s) per week. If I experience chest pain, chest tightness, or shortness of breath, I will seek medical attention immediately. follow a diet rich in fruits, vegetables, and low-fat dairy products with reduced content of saturated & total fat. I will reduce my sodium intake daily. An example is the DASH diet. To obtain more information please refer to the DASH Eating Plan listed in Educational Resources. record my blood pressure results. e[facility] is safe and secure way for you to do this in your medical record online. try to obtain an ideal body weight. My recent weight was Weight: 200 lb ( 90.719 kg). My weight loss goal for my next office visit is 195. limit alcohol consumption. For men two drinks per day and women one drink per day. if currently smoking, will discuss how to quit smoking with my healthcare provider and work towards quitting. Educational Resources: National Heart, Lung, & Blood [place] http://nhlbi.nih.gov/hbp/index.html The DASH Diet Eating Plan http://www.nhlbi.nih.gov/health/health-topics/ topics/dash/ Academy of Nutrition & DIetetics http://eatright.org National Smoking Cessation Site http://smokefree.gov Blood Pressure < Blood Pressure 148/78 (02/14/2019 No Padmini Zarco, 150/90 9:08 AM EDT) Note: This is an individualized treatment (blood pressure) goal for Abel Velazquez: Displayed above (on the left) is your goal for blood pressure control. Your most recent blood pressure is also shown above, on the right. You should try to achieve blood pressures that are lower than your goal listed above (on the left). Depression screen (PHQ-9) total score < 5 Depression No Chaz Restrepo DO Note: This is an individualized treatment (depression) goal for Abel Velazquez: Displayed above is your goal for a depression screening (PHQ-9) score that would indicate good control of your depression. Keep immunizations current Lifestyle No Padmini Zarco MD Note: This is an individualized lifestyle goal for Abel Velazquez: Please be sure to keep up-to-date on recommended immunizations. For example, this would include a yearly influenza vaccine. Immunization status can be seen by looking at the Health Maintenance sections of your [facility], Plan of Care, and any After Visit Summaries. Keep a regular sleep schedule Lifestyle No Chaz Restrepo DO Note: This is an individualized lifestyle goal for Abel Velazquez: Please maintain a regular sleep schedule. This may help with some symptoms of depression. Take all prescribed medications as Self-management No Padmini Zarco MD directed Note: This is an individualized self-management goal for Abel Velazquez: Please take all prescribed medications as directed. 1. Do not skip doses. If you cannot afford your medications, talk with your doctor. 2. Use a pill reminder system such as a pill box if needed. Your pharmacist can help you with this. 3. Contact your Pharmacy 5 days before your medication runs out. If you cannot take your medications for any reasons, talk with your doctor. 4. Please bring all of your medication bottles and inhalers (or a list of all your medications/inhalers) with you to every visit. Potential barriers to meeting all of your care plan goals will continue to be addressed on an ongoing basis. documented as of this encounter Implants Implanted Type Area Service Or Work Dispatcher Chief Device Shelf Model / Identifier Expiration Serial / Lot Date Promus Element - [id number] [id number] [facility] [id number] / Implanted: Qty: 1 on 11/18/2012 at [facility] / [id number] documented as of this encounter Results Not on filedocumented in this encounter Visit Diagnoses Diagnosis Insomnia, unspecified type - Primary Dementia with behavioral disturbance, unspecified dementia type documented in this encounter Insurance Payer Benefit Plan / Subscriber ID Effective Dates Phone Address Type Group MEDICARE MEDICARE PART A xxxxxxxxxxx 1999-Present Medicare & B MEDICAID [facility] xxxxxxxx 2018-Present Medicaid [place] MEDICAID Guarantor Name Account Type Relation to Date of Phone Billing Address Patient Abel Velazquez Personal/Family 1935 [facility] (Home) [facility] [phone] [address] (Work) [place] [address] documented as of this encounter Advance Directives Type Date Recorded 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
== END 2019-02-24 16:14 | disposition short-term general hospital (02) ==
LOC: UCEAST 15:32
DX: R07.9 Chest pain, unspecified (principal); R06.00 Dyspnea, unspecified; I48.92 Unspecified atrial flutter; I10 Essential (primary) hypertension; I48.91 Unspecified atrial fibrillation; J44.9 Chronic obstructive pulmonary disease, unspecified; Z87.891 Personal history of nicotine dependence; Z85.038 Personal history of other malignant neoplasm of large intestine; Z85.46 Personal history of malignant neoplasm of prostate; Z85.118 Personal history of other malignant neoplasm of bronchus and lung
CPT/HCPCS: 99212; A9270-GY; G0463

== ENCOUNTER 2019-02-24 21:08 | Emergency (ER) | payer MEDICARE, MEDICAID ==
--- NOTE | 2019-02-24 21:40 | ED ---
Shortness of Breath - HPI Summary HPI Summary: Patient presents to the ED from convenient care for complaint of shortness of breath starting around 4:45 PM. Patient states he just can't get enough air. Denies fever, cough, sore throat, CP, N/V/V/V abdominal pain, change in urine, change in BM. Patient has history of noncompliance with medications. Medical history CAD with stents, COPD, HTN, PID, anemia, GI bleed, CK D, paroxysmal A. fib. History of right lobectomy secondary to lung cancer. History of prostate cancer history of colon cancer. - History of Current Complaint Chief Complaint: EDShortnessOfBreath Time Seen by Provider: 02/24/19 21:25 Hx Obtained From: Patient, Family/Neonatal Intensive Care Nurse Onset/Duration: Sudden Onset, Lasting Hours Current Severity: Mild Dyspnea At: Rest Aggravating Factors: Nothing Alleviating Factors: Nothing Associated Signs & Symptoms: Negative - Allergy/Home Medications Allergies/Adverse Reactions: Allergies Allergy/AdvReac Type Severity Reaction Status Date / Time No Known Allergies Allergy Verified 02/24/19 21:12 PMH/Surg Hx/FS Hx/Imm Hx Endocrine/Hematology History: Reports: Hx Diabetes - no meds, Hx Anemia - GI bleed 2014 Cardiovascular History: Reports: Hx Coronary Artery Disease, Hx Hypertension, Hx Pacemaker/ICD, Hx Peripheral Vascular Disease, Other Cardiovascular Problems/ Disorders - a-fib, cardiac stent 2014, hyperlipidemia, cardiac cath 2012 Respiratory History: Reports: Hx Chronic Obstructive Pulmonary Disease (COPD), Hx Lung Cancer, Other Respiratory Problems/Disorders - lung cancer, septic pneumonia 07/2017 GI History: Reports: Hx Gastroesophageal Reflux Disease, Hx Ulcer - GI Bleed - healed, Other GI Disorders - hx GI bleed 2014 History: Reports: Other Problems/Disorders - bladder and prostate cancer- sees dr castellano every 6 months Denies: Hx Renal Disease Musculoskeletal History: Reports: Hx Arthritis, Other Musculoskeletal History - DDD, DJD Sensory History: Reports: Hx Cataracts - bilateral, Hx Contacts or Glasses - glasses, Hx Hearing Aid - left ear Opthamlomology History: Reports: Hx Cataracts - bilateral, Hx Contacts or Glasses - glasses Neurological History: Denies: Hx Seizures Psychiatric History: Reports: Hx Anxiety - Cancer History Cancer Type, Location and Year: lung, prostate, bladder, skin, colon Hx Chemotherapy: No - Surgical History Surgery Procedure, Year, and Place: right lung lobectomy 2005 - [place]. hernia repair 1989 - [place]. cardiac stent place 2012? - [facility] Hx Anesthesia Reactions: No - Immunization History Date of Tetanus Vaccine: UNKNOWN Infectious Disease History: Yes Infectious Disease History: Reports: Hx Shingles Denies: Hx Hepatitis, History Other Infectious Disease, Traveled Outside the [place] in Last 30 Days - Family History Known Family History: Positive: Hypertension, Diabetes, Other - HLD, CVA - Social History Alcohol Use: None Substance Use Type: Reports: None Hx Tobacco Use: No Smoking Status (MU): Former Smoker Type: Cigarettes Amount Used/How Often: 2 ppd for 30 years Review of Systems Constitutional: Negative Eyes: Negative ENT: Negative Cardiovascular: Negative Positive: Shortness Of Breath Gastrointestinal: Negative Genitourinary: Negative Musculoskeletal: Negative Skin: Negative Neurological: Negative Psychological: Normal All Other Systems Reviewed And Are Negative: Yes Physical Exam - Summary Physical Exam Summary: Patient in no apparent distress. Translation provided by daughter and , with patient approval. Triage Information Reviewed: Yes Vital Signs On Initial Exam: Initial Vitals Temp Pulse Resp BP Pulse Ox 96.8 F 73 24 139/74 96 02/24/19 21:10 02/24/19 21:10 02/24/19 21:10 02/24/19 21:10 02/24/19 21:10 Vital Signs Reviewed: Yes Appearance: Positive: Well-Appearing Skin: Positive: Warm Head/Face: Positive: Normal Head/Face Inspection Eyes: Positive: Normal ENT: Positive: Normal ENT inspection Neck: Positive: Supple Respiratory/Lung Sounds: Positive: Other - Lung sounds clear to auscultation however diminished on right side. History of lobectomy on right side. Cardiovascular: Positive: Normal Abdomen Description: Positive: Nontender Musculoskeletal: Positive: Normal Neurological: Positive: Normal Psychiatric: Positive: Normal AVPU Assessment: Alert - [place] Coma Scale Best Eye Response: 4 - Spontaneous Best Motor Response: 6 - Obeys Commands Best Verbal Response: 5 - Oriented Coma Scale Total: 15 Diagnostics - Vital Signs Vital Signs Temp Pulse Resp BP Pulse Ox 02/24/19 21:10 96.8 F 73 24 139/74 96 - Laboratory Result Diagrams: 02/24/19 21:39 02/24/19 21:39 Lab Statement: Any lab studies that have been ordered have been reviewed, and results considered in the medical decision making process. Course/Dx - Course Course Of Treatment: Patient presents to the ED from convenient care for complaint of shortness of breath starting around 4:45 PM. Patient states he just can't get enough air. Denies fever, cough, sore throat, CP, N/V/V/V abdominal pain, change in urine, change in BM. Patient has history of noncompliance with medications. Medical history CAD with stents, COPD, HTN, PID , anemia, GI bleed, CK D, paroxysmal A. fib. History of right lobectomy secondary to lung cancer. History of prostate cancer history of colon cancer. Vital signs within normal limits. CRP 1.42. BUN 32. BNP 238. All these values are patient baseline. Labs otherwise unremarkable. EKG atrial flutter with heart rate of 78. EKG change from prior EKG of sinus tachycardia. Chest x -ray unremarkable. - Diagnoses Provider Diagnoses: Shortness of breath Discharge ED - Sign-Out/Discharge Documenting (check all that apply): Patient Departure Patient Received Moderate/Deep Sedation with Procedure: No - Discharge Plan Condition: Stable Disposition: HOME Patient Education Materials: Shortness of Breath (ED) Referrals: Mauro Restrepo MD [Primary Care Provider] - Additional Instructions: Follow-up with primary care. Return to the ED for any new or worsening symptoms. - Billing Disposition and Condition Condition: STABLE Disposition: Home
[2019-02-24 21:49] LABS: ABS Eosinophils 0.2 10^3/ul (0-0.6); ABS Lymphocytes 0.9 10^3/ul (1.0-4.8); ABS Monocytes 0.4 10^3/ul (0-0.8); ABS Neutrophils 3.6 10^3/ul (1.5-7.7); Eosinophil % 3.6 %; Hematocrit 45 % (42-52); Hemoglobin 14.5 g/dL (14.0-18.0); Mean Corpuscular HGB Conc 32 g/dL (31-36); Mean Corpuscular Hemoglobin 26 pg (27-31); Mean Corpuscular Volume 81 fL (80-94); Mean Platelet Volume 10.7 fL (7.4-10.4); Nucleated Red Blood Cells % 0.1; Platelet Count 131 10^3/uL (150-450); Red Cell Distribution Width 15 % (10-15); White Blood Count 5.1 10^3/uL (3.5-10.8)
[2019-02-24 22:05] LABS: Albumin 3.9 g/dL (3.2-5.2); Albumin/Globulin Ratio 1.3 (1-3); BUN/Creatinine Ratio 22.5 (8-20); C Reactive Protein 1.25 mg/L (<8.01); EGFR African American 57.3 (>60); EGFR Non-African American 47.4 (>60); Globulin 2.9 g/dL (2-4); Potassium 4.1 mmol/L (3.5-5.0); Total Bilirubin 0.5 mg/dL (0.2-1.0); Total Protein 6.8 g/dL (6.4-8.9)
[2019-02-24 22:24] LABS: TSH (Thyroid Stimulating Horm) 1.58 mcIU/mL (0.34-5.60)
[2019-02-24 23:22] VITALS: BP 142/77
== END 2019-02-24 22:30 | disposition home or self-care (01) ==
LOC: ED 21:08
DX: R06.02 Shortness of breath (principal); E11.9 Type 2 diabetes mellitus without complications; D64.9 Anemia, unspecified; J44.9 Chronic obstructive pulmonary disease, unspecified; I48.91 Unspecified atrial fibrillation; Z95.5 Presence of coronary angioplasty implant and graft; Z95.810 Presence of automatic (implantable) cardiac defibrillator; K21.9 Gastro-esophageal reflux disease without esophagitis; C61 Malignant neoplasm of prostate; C67.9 Malignant neoplasm of bladder, unspecified; F41.9 Anxiety disorder, unspecified; Z87.891 Personal history of nicotine dependence; Z79.82 Long term (current) use of aspirin; Z79.899 Other long term (current) drug therapy
CPT/HCPCS: 36415; 71045; 80053; 83735; 83880; 84443; 84484; 85025; 85610; 86140; 93005; 99212; 99283; A9270-GY; G0463

== ENCOUNTER 2019-10-02 19:12 | Emergency (ER) | payer MEDICARE, MEDICAID, OTHER ==
--- OUTSIDE RECORDS SUMMARY | 2019-10-02 19:25 | XMS REPORT | Summary of Care ---
:1935 Author Organization [facility] Address [address] [place] [address] Care Team Providers Name Role Phone Judah Nicole MD Primary Neurological Surgery Teacher/Network Management Specialist Gt Pastor Primary Care Provider Reason for Visit Reason Comments Establish Care Encounter Details Date Type Department Care Team Description 08/11/2019 Office Visit Andrzej Kramerto, Dementia with behavioral disturbance, unspecified dementia type (HCC) (Primary Dx); Practice Cinthya Hope MD Borderline diabetes mellitus; [address] History of atrial fibrillation; [place] [address] [place] [address] Chronic obstructive pulmonary disease, unspecified COPD type (HCC); [phone] Coronary artery disease involving skag[place] coronary artery of skag[place] heart without angina pectoris; PAF (paroxysmal atrial fibrillation) (HCC); Essential hypertension; Vitamin B12 deficiency; Malignant neoplasm of lung, unspecified laterality, unspecified part of lung (HCC); Prostate cancer (HCC); PVD (peripheral vascular disease) (HCC); Acute depression; FPC current use of anticoagulant therapy; Insomnia, unspecified type; Oxygen dependent Allergies Active Allergy Reactions Severity Noted Date Comments No Known Drug Allergy 07/19/2007 documented as of this encounter (statuses as of 08/11/2019) Medications Medication Sig Dispensed Refills Start Date End Date Status metoprolol Take 1 Tab by 180 Tab 1 2018 Active (LOPRESSOR) 25 MG mouth TWICE Oral Tab DAILY. SM ASPIRIN ADULT TAKE ONE 90 Tab 1 07/14/2018 Active LOW STRENGTH 81 MG TABLET BY Oral Tab MOUTH EVERY ECIndications: MORNING Preventative health care apixaban (ELIQUIS) Take 1 Tab by 180 Tab 1 2018 Active 5 MG Oral Tab mouth TWICE DAILY. quetiapine Take 1 Tab by 30 Tab 1 08/11/2019 Active (SEROQUEL) 25 MG mouth EVERY Oral BEDTIME TabIndications: NEEDED Dementia with (insomnia, behavioral hallucination disturbance, s, unspecified agitation). dementia type (HCC), Insomnia, unspecified type amLodipine Take 1 Tab by 90 Tab 3 08/11/2019 Active (NORVASC) 10 MG mouth DAILY. Oral TabIndications: Essential hypertension venlafaxine Take 1 Tab by 60 Tab 5 08/11/2019 Active (EFFEXOR) 75 MG mouth DAILY. Oral TabIndications: Acute depression amLodipine TAKE ONE 90 Tab 3 12/29/2017 Discontinued (NORVASC) 10 MG TABLET BY 0 (Reorder) Oral Tab MOUTH EVERY DAY quetiapine Take 1 Tab by 30 Tab 0 05/05/2019 Discontinued (SEROQUEL) 25 MG mouth EVERY 0 (Reorder) Oral Tab BEDTIME NEEDED (insomnia). trazodone Take 100 mg 0 Discontinued (DESYREL) 100 MG by mouth 0 (Patient stopped Oral Tab EVERY the medication) BEDTIME. venlafaxine Take 75 mg by 0 Discontinued (EFFEXOR) 75 MG mouth THREE 0 (Reorder) Oral Tab TIMES DAILY. documented as of this encounter (statuses as of 08/11/2019) Active Problems Problem Noted Date Vitamin B12 deficiency 05/17/2018 Essential hypertension 06/04/2015 PAF (paroxysmal atrial fibrillation) 12/17/2014 History of GI bleed 06/28/2014 Overview: on Xarelto, lower gi bleed BMI 30.0-30.9,adult 09/20/2013 CAD (coronary artery disease) [...] Overview: PSA 7.65 07/05 biopsy Tere 07/05: Burt grade 6 PSA 14.7 12/03 Treatment casodex/lupron [...] as of this encounter (statuses as of 08/11/2019) Resolved Problems Problem Noted Date Resolved Date Hypertension 06/04/2015 documented as of this encounter (statuses as of 08/11/2019) Immunizations Name Administration Dates Next Due H1N1 Injectable Adult 08/27/2009 Influenza (IM) Preservative Free 04/19/2018, 07/04/2014, 03/28/2013, 03/27/2011, 04/17/2010, 05/17/2008 Influenza Vaccine High Dose 06/11/2017, 03/24/2016, 04/30/2015 Influenza Virus Vaccine - Whole 04/06/2007 PNEUMOCOCCAL POLYSACCHARIDE VACCINE 05/17/2008 Pneumococcal Conjugate(13 Valent) 05/14/2015 documented as of this encounter Social History Tobacco Use Types Packs/Day Years Used Date Former Smoker Cigarettes Quit: 2004 Smokeless Tobacco: Never Used Alcohol Use Drinks/Week oz/Week Comments Yes 0 Standard drinks or equivalent 0.0 Sex Assigned at Date Recorded Not on file documented as of this encounter Last Filed Vital Signs Vital Sign Reading Time Taken Comments Blood Pressure 140/80 08/11/2019 9:55 AM EST Pulse 70 08/11/2019 9:55 AM EST Temperature 36.1 08/11/2019 9:55 AM EST C (97 F) Respiratory Rate - - Oxygen Saturation 99% 08/11/2019 9:55 AM EST Inhaled Oxygen Concentration - - Weight 84.8 kg (187 lb) 08/11/2019 9:55 AM EST Height 170.2 cm (5' 7") 08/11/2019 9:55 AM EST Body Mass Index 29.29 08/11/2019 9:55 AM EST documented in this encounter Patient Instructions Patient InstructionsCinthya Johnston MD - 08/11/2019 9:40 AM ESTWelcome. I ordered laboratory tests and will send results. He is not taking trazodone so say off it. I refilled your other medications. Follow a low salt, low fat diet. Shingrix is recommended when available documented in this encounter Progress Notes Cinthya Johnston MD - 08/11/2019 9:40 AM EST Nursing Notes: Carlie Schmitt LPN 08/11/2019 10:07 AM Signed Chief Complaint Patient presents with ? Establish Care Yoga Coordinator: Ms Gómez Oncologist: none Urologist: Dr Wylie Gastroenterology: Dr Artie Rushing, dermatology: Skin cancer. Chief Complaint: Abel Velazquez is a 84-y.o. male who presents for Establishment of care visit. Here with his daughter. History of Present Illness: Prior PCP Dr Restrepo Primary concerns today: Transferring care He has COPD, CAD, atrial fibrillation,htn, PVD. Lung can bladder cancer, borderline diabetes. He has a history of medication non-compliance. daugher says he was dx with early dementia with behavior problems, aggressive, hallucinations. Cardiology visit 07/05/2019: "CAD s/p FAIZAN to LAD 10/2012, HTN, HLD, DM, PAD, and paroxysmal Afib/flutter on rivaroxaban. Atrial flutter was treated with rate control as patient has been asymptomatic. Echocardiogram 10/2017 ejection fraction 60-65% with mild aortic regurgitation. Ankle brachial index 08/2018 right 1.1, left .79." He is not taking his trazodone Lab Results Component Value Date GLYCO 6.4 (H) 10/04/2017 GLYCO 6.3 (H) 03/27/2017 GLYCO 6.5 (H) 09/21/2016 Lab on 05/12/2019 Component Date Value Ref Range Status ? Sodium 05/12/2019 141 134 - 145 mmol/L Final ? Potassium 05/12/2019 4.6 3.5 - 5.1 mmol/L Final ? Chloride 05/12/2019 107 98 - 107 mmol/L Final ? CO2 05/12/2019 23 22 - 30 mmol/L Final ? Calcium 05/12/2019 9.1 8.3 - 10.1 mg/dl Final ? Albumin 05/12/2019 4.1 3.5 - 5.0 g/dl Final ? BUN 05/12/2019 26* 9 - 20 mg/dl Final ? Creatinine 05/12/2019 1.2 0.8 - 1.5 mg/dl Final ? Glucose 05/12/2019 138* 70 - 99 mg/dl Final ? Total Protein 05/12/2019 7.4 6.3 - 8.2 g/dl Final ? Total Bilirubin 05/12/2019 0.6 0.0 - 1.1 MG/DL Final ? AST 05/12/2019 26 17 - 59 U/L Final ? ALT 05/12/2019 20* 21 - 72 U/L Final ? Alkaline Phosphatase 05/12/2019 63 40 - 150 U/L Final ? eGFR 05/12/2019 58 See Interpretation Below ml/min/1.73ml Sq Final Estimated GFR Interpretation: Above 60ml/min/1.73m2 = Normal Renal Function 30-59 ml/min/1.73m2 = Stage 3 Chronic Kidney Disease 15-29 ml/min/1.73m2 = Stage 4 Chronic Kidney Disease Less than 15 ml/min/1.73m2 = Stage 5 Chronic Kidney Disease The GFR value is calculated using the Modification of Diet in Renal Disease ( MDRD) Study Equation which can be found at: https://www.kidney.org/content/rbmp-mntro-cbkdwzfw ? BUN/Creatinine Ratio 05/12/2019 22 6 - 22 RATIO Final ? Anion Gap 05/12/2019 11 3 - 11 mmol/L Final ? A/G Ratio 05/12/2019 1.2 0.8 - 2.0 ratio Final US SOFT TISSUE HEAD NECK ULTRASOUND Narrative: Procedure(s): US SOFT TISSUE HEAD NECK ULTRASOUND Date of service: 11/24/2018 8:40 AM Provided clinical information: 83 years, Male, "post cervical lymphadenopathy. Scalp cyst. No sickness. Drowsy recently. Also cyst on scalp. Confirm that just a cyst" Procedure and materials: Standard protocol. Comparison studies: MRI of the head and neck 05/21/2014. Ultrasound of soft tissues of the head and neck 04/26/2014 Observations: 2 regions were evaluated: left top of the head and left posterior neck. Left top of the head: Large circumscribed lenticular but poorly visualized due to overlying hair subdermal lesion paralleling the skin and isoechoic to subcutaneous fat is compatible with previously seen lipoma. Left posterior neck: Large well-circumscribed subdermal lenticular lesion paralleling the skin isoechoic to subcutaneous fat measures 3.8 cm long by 3.6 cm wide by 0.9 cm and it is compatible with previously seen lipoma. Impression: IMPRESSION: The imaged lesions corresponding to palpable lumps are compatible with lipomas. Urgency: Routine. This is a routine medical imaging report. Signed by Linnea Wilburn MD on 11/29/2018 1:12 PM Procedure(s): US SOFT TISSUE HEAD NECK ULTRASOUND Date of service: 11/24/2018 8:40 AM ? Provided clinical information: 83 years, Male, "post cervical lymphadenopathy. Scalp cyst. No sickness. Drowsy recently. Also cyst on scalp. Confirm that just a cyst" Procedure and materials: Standard protocol. Comparison studies: MRI of the head and neck 05/21/2014. Ultrasound of soft tissues of the head and neck 04/26/2014 ? Observations: 2 regions were evaluated: left top of the head and left posterior neck. Left top of the head: Large circumscribed lenticular but poorly visualized due to overlying hair subdermal lesion paralleling the skin and isoechoic to subcutaneous fat is compatible with previously seen lipoma. Left posterior neck: Large well-circumscribed subdermal lenticular lesion paralleling the skin isoechoic to subcutaneous fat measures 3.8 cm long by 3.6 cm wide by 0.9 cm and it is compatible with previously seen lipoma. ? IMPRESSION IMPRESSION: The imaged lesions corresponding to palpable lumps are compatible with lipomas. ? Urgency: Routine. This is a routine medical imaging report. Procedure(s): CT HEAD WITHOUT IV CONTRAST Date of service: 03/15/2018 1:32 PM ? Provided clinical information: 82 years, Male, "memory changes" ? Technique: Contiguous 4 mm axial images were obtained from the skull base through the vertex. These were then reviewed in brain and bone windows. Coronal and sagittal reformations were acquired. ? Contrast: None ? Observations: ? The ventricles and sulci are symmetrically prominent consistent with age-related volume loss. There are scattered hypodensities within the periventricular and subcortical white matter consistent with chronic small vessel ischemic disease. There is a size stable scalp hematoma overlying the left parietal calvarium. ? The wen-white differentiation is well-maintained. There is no shift of midline structures. ? There are no extra-axial or intra-axial fluid collections. The basal cisterns are patent. ? The globes and intraorbital contents are within normal limits. There is no retrobulbar inflammation. ? The paranasal sinuses and mastoid air cells are clear. ? IMPRESSION IMPRESSION: ? No CT findings of acute hemorrhage, mass effect or acute transcortical infarct. ? Signed by Pedro Luis Blair MD on 03/17/2018 1:13 PM Procedure(s): CT HEAD WITHOUT IV CONTRAST Date of service: 03/15/2018 1:32 PM ? Provided clinical information: 82 years, Male, "memory changes" ? Technique: Contiguous 4 mm axial images were obtained from the skull base through the vertex. These were then reviewed in brain and bone windows. Coronal and sagittal reformations were acquired. ? Contrast: None ? Observations: ? The ventricles and sulci are symmetrically prominent consistent with age-related volume loss. There are scattered hypodensities within the periventricular and subcortical white matter consistent with chronic small vessel ischemic disease. There is a size stable scalp hematoma overlying the left parietal calvarium. ? The wen-white differentiation is well-maintained. There is no shift of midline structures. ? There are no extra-axial or intra-axial fluid collections. The basal cisterns are patent. ? The globes and intraorbital contents are within normal limits. There is no retrobulbar inflammation. ? The paranasal sinuses and mastoid air cells are clear. ? IMPRESSION IMPRESSION: ? No CT findings of acute hemorrhage, mass effect or acute transcortical infarct. ? Signed by Pedro Luis Blair MD on 03/17/2018 1:13 PM ? Echocardiogram 10/27/2017: FINAL IMPRESSION: * Technically limited and difficult study with poor endocardial border resolution. * IV "Definity" echo-contrast was not used in this study to enhance visualization. * Below given dimensions are therefore approximations. * Within these limitations gross findings are as follows: Global systolic function appears normal with estimated LVEF 60-65% and no regional wall motion abnormalities. Normal diastolic function. Normal LA, RA and RV size and function. No hemodynamically significant valve disease. Pulmonary arterial systolic pressure cannot be accurately estimated from this study. No pericardial effusion. Compared to the prior echocardiogram report of 09/20/2015, there is no significant change. EKG 11/10/2018: Probable ?Atrial flutter with 4:1 A-V conduction Septal infarct (cited on or before 10-NOV-2018) Abnormal ECG When compared with ECG of 12-NOV-2017 07:08, Atrial flutter has replaced Sinus rhythm Questionable change in initial forces of Septal leads Confirmed by FELTON SANCHEZ MD ([id number]) ([id number]) on 11/13/2018 9:44:06 AM Patient Active Problem List Diagnosis ? Urinary bladder cancer (HCC) ? Lung cancer (HCC) ? Prostate cancer (HCC) ? PVD (peripheral vascular disease) (HCC) ? Borderline diabetes mellitus ? History of smoking ? COPD (chronic obstructive pulmonary disease) (HCC) ? History of atrial fibrillation ? CAD (coronary artery disease) ? BMI 30.0-30.9,adult ? Osteoporosis ? PAF (paroxysmal atrial fibrillation) (HCC) ? Essential hypertension ? Vitamin B12 deficiency ? History of GI bleed Past Medical History: Diagnosis Date ? AK (actinic keratosis) ? CAD (coronary artery disease) 10/2012 drug eluted stent LAD 2012 ? Colonic polyps tubular adenoma, colonoscopy ? COPD ? DDD (degenerative disc disease) ? DJD (degenerative joint disease) ? DM (diabetes mellitus) (HCC) eye 06/09/14 ? Dysplastic colon polyp ? History of GI bleed 2014 on Xarelto, lower gi bleed ? Hyperlipidemia ? Hypertension ? Lung cancer (HCC) R lung resection, chronic R pleural effusion ? Osteoporosis ? Paroxysmal atrial fibrillation (HCC) HISTORY OF, after pnemothorax ? Prostate cancer (HCC) Dr. Carranza ? PVD (peripheral vascular disease) (HCC) ? Skin cancer ? Urinary bladder cancer (HCC) 07/19/2007 HISTORY OF Past Surgical History: Procedure Laterality Date ? ANGIOPLASTY STENT CORONARY 11/18/2012 Procedure: ANGIOPLASTY STENT CORONARY; Surgeon: Tyler Owen MD; Location: [facility]; Laterality:N/A; CORONARY ARTERIOGRAM, FFR LAD, PRE DIL LAD, FAIZAN X1 LAD, SHEATH SUTURED LEFT FEM. ? EXCISION LESION (CHG) 11/05/2006 RT SIDE OF NOSE ? LOBECTOMY OF LUNG R, canncer ? IL BX/REMV,LYMPH NODE,DEEP CERV/SCAL ? TOTAL CYSTECTOMY NEC 10/28/2006 SEBACEOUS CYST, CHEST WALL Outpatient Medications as of 08/11/2019 Medication Sig Dispense Refill ? amLodipine (NORVASC) 10 MG Oral Tab TAKE ONE TABLET BY MOUTH EVERY DAY 90 Tab 3 ? apixaban (ELIQUIS) 5 MG Oral Tab Take 1 Tab by mouth TWICE DAILY. 180 Tab 1 ? metoprolol (LOPRESSOR) 25 MG Oral Tab Take 1 Tab by mouth TWICE DAILY. 180 Tab 1 ? quetiapine (SEROQUEL) 25 MG Oral Tab Take 1 Tab by mouth EVERY BEDTIME NEEDED (insomnia).30 Tab 0 ? SM ASPIRIN ADULT LOW STRENGTH 81 MG Oral Tab EC TAKE ONE TABLET BY MOUTH EVERY MORNING 90 Tab 1 No current facility-administered medications on file as of 08/11/2019. Allergies Allergen Reactions ? No Known Drug Allergy Social History Socioeconomic History ? Marital status: Spouse name: Not on file ? Number of children: Not on file ? Years of education: Not on file ? Highest education level: Not on file Occupational History ? Not on file Social Needs ? Financial resource strain: Not on file ? Food insecurity Worry: Not on file Inability: Not on file ? Transportation needs Medical: Not on file Non-medical: Not on file Tobacco Use ? Smoking status: Former Smoker Types: Cigarettes Last attempt to quit: 2005 Years since quittin.1 ? Smokeless tobacco: Never Used Substance and Sexual Activity ? Alcohol use: Yes Alcohol/week: 0.0 standard drinks ? Drug use: Yes ? Sexual activity: Not Currently Lifestyle ? Physical activity Days per week: Not on file Minutes per session: Not on file ? Stress: Not on file Relationships ? Social connections Talks on phone: Not on file Gets together: Not on file Attends spiritism service: Not on file Active member of club or organization: Not on file Attends meetings of clubs or organizations: Not on file Relationship status: Not on file ? Intimate partner violence Fear of current or ex partner: Not on file Emotionally abused: Not on file Physically abused: Not on file Forced sexual activity: Not on file Other Topics Concern ? Not on file Social History Narrative Lives alone with home health aides all day and night, 24 hours. [facility]. Uses walker, wheelchair, shower chair, commode Has oxygen at hs, 2 L [place] Incontinent--stool and urine, in diapers. Daughter lives nearby. Family History Problem Relation Age of Onset ? Cancer Sister pancreatic cancer ? Cancer Daughter thymoma ? Heart Brother Health Maintenance Topic Date Due ? DTaP/Tdap/Td Vaccines (1 - Tdap) 1944 ? ZOSTER IMMUNIZATION SERIES (1 of 2) 1983 ? INFLUENZA VACCINE (1) 02/26/2019 ? DEPRESSION SCREENING 08/23/2020 (Originally 1947) ? DIABETES SCREENING 05/12/2020 ? FALL RISK ASSESSMENT 07/05/2020 ? PNEUMOCOCCAL 65+YRS Completed ? HEPATITIS A IMMUNIZATION SERIES Aged Out ? HPV IMMUNIZATION SERIES Aged Out ? MENINGOCOCCAL VACCINE IMM Aged Out Review Of Systems Review of Systems - History obtained from his daughter and he answers some questions. General ROS: negative for - chills or fever, unexpected weight changes ENT ROS: negative for - , nasal congestion, nasal discharge Respiratory ROS: negative for - cough, hemoptysis or increased shortness of breath Cardiovascular ROS: negative for - chest pain, dyspnea on exertion, edema or palpitations Gastrointestinal ROS: no abdominal pain, change in bowel habits, or black or bloody stools Genito-Urinary ROS: no known hematuria Neuro: dementia worsening with wandering and yelling at night especially,calls out to people that are not there Psych: Stable depression daughter thinks. PHYSICAL EXAMINATION: BP 140/80 | Pulse 70 | Temp 97 F (36.1 C) | Ht 5' 7" (1.702 m) | Wt 187 lb (84.8 kg) | SpO2 99% | BMI 29.29 kg/m Physical Examination: General appearance - alert, well appearing, and in no distress Mental status - alert, oriented to person, place, and time, normal mood, behavior, speech, dress, motor activity, and thought processes Eyes - pupils equal, sclera anicteric Neck - supple, no cervical or supraclavicular adenopathy, carotids upstroke normal bilaterally, no bruits, thyroid exam: thyroid is normal in size without nodules or tenderness, no neck masses palpated. Chest/Lungs - clear to auscultation, no wheezes, rales or rhonchi, symmetric air entry, good aeration Heart - normal rate, regular rhythm Abdomen - soft, non tender on palpation, nondistended, no obvious masses or hepatosplenomegaly, bowel sounds normal, no guarding or rebound. No costervertebral angle tenderness Neurological - alert, normal speech, no tremor, mostly asks me about [place] and wants to talk about a photo of [place] he has at home. Extremities - dorsalis pedis pulses normal, no pedal edema, no clubbing or cyanosis Skin: Healing scab right side of nose and area of recent cyst excision on back. ASSESSMENT/PLAN: Establishment of care. Health maintenance recommendations and screening discussed. Daughter reports he is a full code. Does not want this changed at this time. [facility] wellness exam declined. ICD-9-CM ICD-10-CM 1. Dementia with behavioral disturbance, unspecified dementia type ([facility]) 294.21 F03.91 quetiapine (SEROQUEL) 25 MG Oral Tab 2. Borderline diabetes mellitus 790.29 R73.03 GLYCOHEMOGLOBIN A1C GLYCOHEMOGLOBIN A1C 3. History of atrial fibrillation V12.59 Z86.79 4. Chronic obstructive pulmonary disease, unspecified COPD type ([facility]) 496 J44.9 5. Coronary artery disease involving [place] coronary artery of [place] heart without angina qssttnor480.01 I25.10 BASIC METABOLIC PANEL LDL, DIRECT LDL, DIRECT BASIC METABOLIC PANEL 6. PAF (paroxysmal atrial fibrillation) ([facility]) 427.31 I48.0 7. Essential hypertension 401.9 I10 amLodipine (NORVASC) 10 MG Oral Tab 8. Vitamin B12 deficiency 266.2 E53.8 9. Malignant neoplasm of lung, unspecified laterality, unspecified part of lung ([facility]) 162.9 C34.90 10. Prostate cancer ([facility]) 185 C61 11. PVD (peripheral vascular disease) ([facility]) 443.9 I73.9 12. Acute depression 296.20 F32.9 venlafaxine (EFFEXOR) 75 MG Oral Tab 13. FPC current use of anticoagulant therapy V58.61 Z79.01 CBC NO DIFFERENTIAL CBC NO DIFFERENTIAL 14. Insomnia, unspecified type 780.52 G47.00 quetiapine (SEROQUEL) 25 MG Oral Tab 15. Oxygen dependent V46.2 Z99.81 Home care services form and letter of support completed: "To Whom It May Concern: I am writing on behalf of my patient Abel Velazquez to document the medical necessity of Home health aide at night for his dementia with behavorial disturbances. His dementia is worsening. . Daughter Radha reports at night he wanders in the house , tries to leave the house, yells out, and needs constant observation with worsening dementia. In addition, he has urinary and stool incontinence that needs changing every 2 hours. He is not ableto calm down at night and has various body aches. He has history of prostate cancer, bladder cancer,COPD, Coronary artery disease with stents, COPD, oxygen dependent at night, history of lung cancer,atrial fibrillation on an anticoagulant, and dementia. All these medical conditions have taken a toll on his body and he is struggling with these conditions in this stage of his life. He has day time home health aide but he needs 24 hour care and supervision. The family is struggling to provide night time care that as family has day time jobs. He is not able to carry out his activities of daily living by himself. He doesn 't have the cognitive capability to do ADLs and also physically he is becoming challenged. Medically he needs supervisionand home health aide 24 hours a day." Patient Instructions Welcome. I ordered laboratory tests and will send results. He is not taking trazodone so say off it. I refilled your other medications. Follow a low salt, low fat diet. Shingrix is recommended when available Author: Cinthya Johnston MD 08/11/2019 11:12 documented in this encounter Plan of Treatment Date Type Specialty Care Team Description 01/04/2020 Office Visit Cardiology Felton Sanchez MD [address] [place] [address] [phone] Name Type Priority Associated Diagnoses Date/Time BASIC METABOLIC PANEL Lab Routine Coronary artery disease 08/11/2019 10:34 AM involving [place] coronary EST artery of [place] heart without angina pectoris GLYCOHEMOGLOBIN A1C Lab Routine Borderline diabetes 08/11/2019 10:34 AM mellitus EST LDL, DIRECT Lab Routine Coronary artery disease 08/11/2019 10:34 AM involving [place] coronary EST artery of [place] heart without angina pectoris CBC NO DIFFERENTIAL Lab Routine manager long term care current use of 08/11/2019 10:34 AM anticoagulant therapy EST Name Type Priority Associated Diagnoses Order Schedule BASIC METABOLIC PANEL Lab Routine Coronary artery disease Expected: 2019 involving [place] coronary (Approximate), artery of [place] heart Expires: 08/11/2020 without angina pectoris GLYCOHEMOGLOBIN A1C Lab Routine Borderline diabetes Expected: 08/11/2019 mellitus (Approximate), Expires: 08/11/2020 LDL, DIRECT Lab Routine Coronary artery disease Expected: 08/11/2019 involving [place] coronary (Approximate), artery of [place] heart Expires: 08/11/2020 without angina pectoris CBC NO DIFFERENTIAL Lab Routine manager long term care current use of Expected: 2019 anticoagulant therapy (Approximate), Expires: 08/11/2020 Health Maintenance Due Date Last Done Comments DTaP/Tdap/Td Vaccines (1 - 1944 Tdap) ZOSTER IMMUNIZATION SERIES 1983 (1 of 2) INFLUENZA VACCINE (#1) 2019 04/19/2018, 06/11/2017, 03/24/2016, Additional history exists DIABETES SCREENING 05/12/2020 05/12/2019, 11/22/2018, 03/31/2018, Additional history exists FALL RISK ASSESSMENT 07/05/2020 07/05/2019, 07/05/2019 DEPRESSION SCREENING 08/23/2020 Postponed from 1945 (Other) PNEUMOCOCCAL 65+YRS Completed 05/14/2015, 05/17/2008 HEPATITIS A IMMUNIZATION Aged Out No longer eligible SERIES based on patient's age to complete this topic HPV IMMUNIZATION SERIES Aged Out No longer eligible based on patient's age to complete this topic MENINGOCOCCAL VACCINE IMM Aged Out No longer eligible based on patient's age to complete this topic documented as of this encounter Goals Goal Patient Goal Associated Recent Patient-Stated? Author Type Problems Progress Blood Pressure Blood Pressure Hypertension 140/80 No Carolee, < 140/90 (08/11/2019 Padmini, 9:55 AM EST) Note: Hypertension Care Plan Based on the [...] Educational Resources. record my blood pressure results. [place] is safe and secure way for you [...] Educational Resources: National Heart, Lung, & Blood [place] http://nhlbi.nih.gov/hbp/index.html The DASH Diet Eating Plan http://www.nhlbi.nih.gov/health/health-topics/ topics/dash/ Academy of Nutrition & DIetetics http://eatright.org National Smoking Cessation Site http://smokefree.gov Blood Pressure < Blood Pressure 140/80 (08/11/2019 No Padmini Zarco, 150/90 9:55 AM EST) Note: This is an individualized treatment (blood [...] Summaries. Keep a regular sleep schedule Lifestyle Chaz Almanza DO Note: This is an individualized lifestyle goal for Abel Velazquez: Please maintain a regular sleep schedule. This may help with some symptoms of depression. Take all prescribed medications as Self-management Padmini Jennings MD directed Note: This is an individualized [...] of this encounter Implants Implanted Type Area Pattern Generator Operator Device Shelf Model / Identifier Expiration Serial / Lot Date Promus Element - [id number] LAD Mid SHAWN MACHADO [id number] / Implanted: Qty: 1 on 11/18/2012 at [facility] / [id number] documented as of this encounter Results Not on filedocumented in this encounter Visit Diagnoses Diagnosis Borderline diabetes mellitus Other abnormal glucose History of atrial fibrillation Personal history of other diseases of circulatory system Chronic obstructive pulmonary disease, unspecified COPD type (HCC) Coronary artery disease involving [place] coronary artery of [place] heart without angina pectoris PAF (paroxysmal atrial fibrillation) (HCC) Atrial fibrillation Essential hypertension Unspecified essential hypertension Vitamin B12 deficiency Other B-complex deficiencies Malignant neoplasm of lung, unspecified laterality, unspecified part of lung ( HCC) Prostate cancer (HCC) Malignant neoplasm of prostate PVD (peripheral vascular disease) (HCC) Peripheral vascular disease, unspecified Acute depression Major depressive disorder, single episode, unspecified manager long term care current use of anticoagulant therapy Dementia with behavioral disturbance, unspecified dementia type (HCC) Insomnia, unspecified type Oxygen dependent Dependence on supplemental oxygen documented in this encounter Guarantor Name Account Type Relation to Date of Phone Billing Address Patient Abel Velazquez Personal/Family 1935 [facility] (Home) [facility] [phone] [address] (Work) [place] [address] documented as of this encounter Advance Directives Type Date Recorded 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
--- OUTSIDE RECORDS SUMMARY | 2019-10-02 19:25 | XMS REPORT | Summary of Care ---
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); [place], [place] [id number] [place] [address] CKD (chronic kidney disease) stage 3, GFR 30-59 ml/min ([facility]); [phone] Community acquired pneumonia of right lower lobe of lung ([facility]) Allergies Active Allergy Reactions Severity Noted Date Comments No Known Drug Allergy 07/19/2007 documented as of this encounter (statuses as of 08/24/2019) Medications Medication Sig Dispensed Refills Start Date End Date Status metoprolol Take 1 Tab by 180 Tab 1 2018 Active (LOPRESSOR) 25 MG mouth TWICE Oral Tab DAILY. quetiapine Take 1 Tab by 30 [...] MG mouth DAILY. Oral TabIndications: Acute depression SM ASPIRIN ADULT TAKE ONE 90 Tab 1 08/16/2019 Active LOW STRENGTH 81 MG TABLET BY Oral Tab MOUTH EVERY ECIndications: MORNING Preventative health care apixaban (ELIQUIS) Take 1 Tab by 60 Tab 5 08/24/2019 Active 2.5 MG Oral mouth TWICE TabIndications: DAILY. New PAF (paroxysmal lower dose atrial fibrillation) (HCC) Cefdinir (OMNICEF) Take 1 Cap by 20 Cap 0 08/24/2019 Active 300 MG Oral mouth TWICE 0 CapIndications: DAILY for 10 Community acquired days. pneumonia of right lower lobe of lung (HCC) doxycycline Take 1 Tab by 20 Tab 0 08/24/2019 Active (VIBRAMYCIN) 100 mouth TWICE 0 MG Oral DAILY for 10 TabIndications: days. Community acquired pneumonia of right lower lobe of lung (HCC) ELIQUIS 5 MG Oral TAKE ONE 180 Tab 1 08/16/2019 Discontinued Tab TABLET BY 0 (Dose Adjustment) MOUTH TWICE A DAY documented as of this encounter (statuses as of 08/24/2019) Active Problems Problem Noted Date Vitamin B12 [...] Overview: PSA 7.65 07/05 biopsy Tere 07/05: [place] grade 6 PSA 14.7 12/03 Treatment casodex/lupron [...] as of this encounter (statuses as of 08/24/2019) Resolved Problems Problem Noted Date Resolved Date Hypertension 06/04/2015 documented as of this encounter (statuses as of 08/24/2019) Immunizations Name Administration Dates Next Due H1N1 [...] Sign Reading Time Taken Comments Blood Pressure 130/70 08/24/2019 11:34 AM EST Pulse 73 08/24/2019 11:34 AM EST Temperature 36.1 08/24/2019 11:34 AM EST C (97 F) Respiratory Rate - - Oxygen Saturation 95% 08/24/2019 11:34 AM EST Inhaled Oxygen Concentration - - Weight 84.8 kg (187 lb) 08/24/2019 11:34 AM EST Height 170.2 cm (5' 7") 08/24/2019 11:34 AM EST Body Mass Index 29.29 08/24/2019 11:34 AM EST documented in this encounter Patient Instructions Patient InstructionsCinthya Johnston MD - 08/24/2019 11:20 AM ESTYou are bruising easily on the combination of Eliquis and aspirin Given your age and renal function, but back Eliquis to 2.5 mg twice daily, down from 5 mg. This may increase the risk of stroke a bit. You appear to have pneumonia. Start Cefdinir 300 mg twice a day and Doxy 100 mg twice a day for 10 days. Take with food. Rest, drink plenty of fluids. Return if worsening, or if not better in 7-10 days. Practice good infection control: wash hands often. Cough or need into a tissue and discard it then sanitize your hands. Do not work or go to school if you have a fever over 101. You have been prescribed an antibiotic for treatment of your condition. It is important to rememberthat antibiotics treat bacterial infections, not viral infections. In order for them to be effective - you must take ALL of the medication and take it exactly as prescribed. FINISH THE MEDICATION - even if you are feeling better. Antibiotics can cause stomach upset and diarrhea, and increase the risk of C. Difficile Colitis. You can help decrease these symptoms/risks by taking a probiotic while using the medication (Julio Garcia for example). Take your antibiotic with food unless otherwise recommended by the pharmacist. documented in this encounter Progress Notes Cinthya Johnston MD - 08/24/2019 11:20 AM EST Nursing Notes: Carlie Schmitt LPN 08/24/2019 11:43 AM Signed Chief Complaint Patient presents with ? 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 Chief Complaint: Abel Velazquez is a 84-y.o. male who presents for increased bruising and cough. Here with his randdaughter. History of Present Illness: Prior PCP Dr Restrepo He is bruising more on arms and legs x 1 week. He is on aspirin and Eliquis. His family would like to decrease the dose of his eliquis. Patient also presents with symptoms of an upper respiratory infection. Symptoms include raspy ough x 2 weeks, white sputum. Onset of symptoms was 2 weeks ago, gradually worsening since that time. Denies fever. He also complains of nasal congestion and productive cough with clear sputum for 2 weeks. He is drinking plenty of fluids. Evaluation to date: none.. Treatment to date: none. Per last visit: He has COPD, CAD, atrial fibrillation,htn, PVD. Lung can bladder cancer, borderline diabetes. He has a history of medication non-compliance. gerarder says he was dx with early dementia with behavior problems, aggressive, hallucinations. Cardiology visit 07/05/2019: "CAD s/p FAIZAN to LAD 10/2012, HTN, HLD, DM, PAD, and paroxysmal Afib/flutter on rivaroxaban. Atrial flutter was treated with rate control as patient has been asymptomatic. Echocardiogram 10/2017 ejection fraction 60-65% with mild aortic regurgitation. Ankle brachial index 08/2018 right 1.1, left .79." Lab Results Component Value Date GLYCO 6.6 (H) 08/11/2019 GLYCO 6.4 (H) 10/04/2017 GLYCO 6.3 (H) 03/27/2017 Office Visit on 08/11/2019 Component Date Value Ref Range Status ? WBC Count 08/11/2019 4.80 4.23 - 9.07 K/uL Final Methodology was changed 06/30/2018. Please note updated reference range and units. ? RBC Count 08/11/2019 5.54 4.30 - 5.89 M/UL Final ? Hemoglobin 08/11/2019 14.3 13.7 - 17.5 g/dL Final ? Hematocrit 08/11/2019 47.1 40.1 - 51.0 % Final ? MCV 08/11/2019 85.0 79.0 - 92.2 FL Final ? MCH 08/11/2019 25.8 25.7 - 32.2 PG Final ? MCHC 08/11/2019 30.4* 32.3 - 36.5 g/dL Final ? Platelet Count 08/11/2019 145* 163 - 337 K/uL Final ? MPV 08/11/2019 12.3 9.4 - 12.4 FL Final ? RDW 08/11/2019 13.8 11.6 - 14.4 % Final ? Direct Ldl-Cholesterol 08/11/2019 50 <100 MG/DL Final ? Glycohemoglobin A1C 08/11/2019 6.6* <=5.6 % Final Normal*: <=5.6% Pre Diabetes* Risk: 5.7-6.4% Diabetes* Risk: >=6.5% Glycemic Goals for Adult Diabetes*: <7.0% *(Adult Ranges)[place] Diabetes Association, Standards of Medical Care in Diabetes, 2018 ? Glucose 08/11/2019 127* 70 - 99 mg/dl Final ? BUN 08/11/2019 27* 9 - 20 mg/dl Final ? Creatinine 08/11/2019 1.3 0.8 - 1.5 mg/dl Final ? Sodium 08/11/2019 139 134 - 145 mmol/L Final ? Potassium 08/11/2019 4.6 3.5 - 5.1 mmol/L Final ? Chloride 08/11/2019 104 98 - 107 mmol/L Final ? CO2 08/11/2019 30 22 - 30 mmol/L Final ? Calcium 08/11/2019 9.1 8.3 - 10.1 mg/dl Final ? eGFR 08/11/2019 52 See Interpretation Below ml/min/1.73ml Sq Final Estimated GFR Interpretation: Above 60ml/min/1.73m2 = Normal Renal Function 30-59 ml/min/1.73m2 = Stage 3 Chronic Kidney Disease 15-29 ml/min/1.73m2 = Stage 4 Chronic Kidney Disease Less than 15 ml/min/1.73m2 = Stage 5 Chronic Kidney Disease The GFR value is calculated using the Modification of Diet in Renal Disease ( MDRD) Study Equation which can be found at: https://www.kidney.org/content/mwoc-lhdsm-pimqeiym ? BUN/Creatinine Ratio 08/11/2019 21 6 - 22 RATIO Final ? Anion Gap 08/11/2019 5 3 - 11 mmol/L Final US SOFT TISSUE HEAD NECK ULTRASOUND [...] Wilburn MD on 11/29/2018 1:12 PM Procedure(s): CT HEAD WITHOUT IV CONTRAST Date of service: 03/15/2018 1:32 PM ? Provided clinical information: 82 years, Male, "memory changes" Technique: Contiguous 4 mm axial images were obtained from the skull base through the vertex. These were then reviewed in brain and bone windows. Coronal and sagittal reformations were acquired.? Contrast: None Observations: The ventricles and sulci are symmetrically prominent consistent with age-related volume loss. There are scattered hypodensities within the periventricular and subcortical white matter consistent with chronic small vessel ischemic disease. There is a size stable scalp hematoma overlying the left parietal calvarium.? The wen-white differentiation is well-maintained. There is no shift of midline structures. ? There are no extra-axial or intra-axial fluid collections. The basal cisterns are patent. The globes and intraorbital contents are within normal limits. There is no retrobulbar inflammation.? The paranasal sinuses and mastoid air cells are clear. ? IMPRESSION: No CT findings of acute hemorrhage, mass effect or acute transcortical infarct. Signed by Pedro Luis Blair MD on 03/17/2018 1:13 PM Echocardiogram 10/27/2017: FINAL IMPRESSION: * Technically limited [...] Septal leads Confirmed by FELTON SANCHEZ MD ([id number]) ([id number]) on 11/13/2018 9:44:06 AM Patient Active [...] after pnemothorax ? Prostate cancer (HCC) Dr. Tere ? PVD (peripheral vascular disease) (HCC) ? Skin cancer ? Urinary bladder cancer (HCC) 07/19/2007 HISTORY OF Past Surgical History: Procedure Laterality Date ? ANGIOPLASTY STENT CORONARY 11/18/2012 Procedure: ANGIOPLASTY STENT CORONARY; Surgeon: Tyler Owen MD; Location: [facility]; Laterality:N/A; CORONARY ARTERIOGRAM, FFR LAD, PRE DIL LAD, FAIZAN X1 LAD, SHEATH SUTURED LEFT FEM. ? EXCISION LESION (CHG) 11/05/2006 RT SIDE OF NOSE ? LOBECTOMY OF LUNG R, canncer ? NJ BX/REMV,LYMPH NODE,DEEP CERV/SCAL ? TOTAL CYSTECTOMY NEC [...] BY MOUTH EVERY MORNING 90 Tab 1 Allergies Allergen Reactions ? No Known Drug [...] file Gets together: Not on file Attends jain service: Not on file Active member of [...] aides all day and night, 24 hours. [facility]. Uses walker, wheelchair, shower [...] ? DEPRESSION SCREENING 08/23/2020 (Originally 1947) ? FALL RISK ASSESSMENT 07/05/2020 ? DIABETES SCREENING 08/11/2020 ? PNEUMOCOCCAL 65+YRS Completed ? HEPATITIS A IMMUNIZATION SERIES Aged Out ? HPV IMMUNIZATION SERIES Aged Out ? MENINGOCOCCAL VACCINE IMM Aged Out Review Of Systems Review of Systems - History obtained from his daughter and he answers some questions. General ROS: negative for - chills or fever, unexpected weight changes ENT ROS: positive for- , nasal congestion, nasal discharge Respiratory ROS: positive for cough, but not hemoptysis or increased shortness of breath Cardiovascular ROS: negative for - chest pain, dyspnea on exertion, edema or palpitations Gastrointestinal ROS: no abdominal pain, change in bowel habits, or black or bloody stools Genito-Urinary ROS: no known hematuria Neuro: dementia : with wandering and yelling at night especially,calls out to people that are not there PHYSICAL EXAMINATION: BP 130/70 | Pulse 73 | Temp 97 F (36.1 C) | Ht 5' 7" (1.702 m) | Wt 187 lb (84.8 kg) | SpO2 95% | BMI 29.29 kg/m Physical Examination: General appearance - alert, well appearing, and in no distress Mental status - alert, oriented to person, place, and time, normal mood, behavior, speech, dress, motor activity, and thought processes Eyes - pupils equal, sclera anicteric Ears: TM montes bilararally Throat; mild erythema, no exudate Neck - supple, mild anteriorl cervical, but no supraclavicular adenopathy, carotids upstroke normalbilaterally, no bruits, thyroid exam: thyroid is normal in size without nodules or tenderness, no neck masses palpated. Chest/Lungs - decreased breath sounds right lower lobe with some crackles, no wheezes, rales or rhonchi, symmetric air entry, fair to moderate aeration Heart - normal rate, regular rhythm Abdomen - soft, non tender on palpation, nondistended, no obvious masses or hepatosplenomegaly, bowel sounds normal, no guarding or rebound. No costervertebral angle tenderness Neurological - alert, normal speech, no tremor, mostly asks me about [place] and wants to talk about a photo of [place] he has at home. Extremities - dorsalis pedis pulses normal, no pedal edema ASSESSMENT/PLAN: ICD-9-CM ICD-10-CM 1. Cough 786.2 R05 XR CHEST 2 VIEW PA AND LATERAL (STANDARD) 2. Easy bruising 782.9 R23.8 3. PAF (paroxysmal atrial fibrillation) ([facility]) 427.31 I48.0 apixaban (ELIQUIS) 2.5 MG Oral Tab 4. CKD (chronic kidney disease) stage 3, GFR 30-59 ml/min ([facility]) 585.3 N18.3 5. Community acquired pneumonia of right lower lobe of lung ([facility]) 481 J18.1 Cefdinir (OMNICEF) 300 MG Oral Cap doxycycline (VIBRAMYCIN) 100 MG Oral Tab Patient Instructions You are bruising easily on the combination of Eliquis and aspirin Given your age and renal function, but back Eliquis to 2.5 mg twice daily, down from 5 mg. This may increase the risk of stroke a bit. You appear to have pneumonia. Start Cefdinir 300 mg twice a day and Doxy 100 mg twice a day for 10 days. Take with food. Rest, drink plenty of fluids. Return if worsening, or if not better in 7-10 days. Practice good infection control: wash hands often. Cough or need into a tissue and discard it then sanitize your hands. Do not work or go to school if you have a fever over 101. You have been prescribed an antibiotic for treatment of your condition. It is important to rememberthat antibiotics treat bacterial infections, not viral infections. In order for them to be effective - you must take ALL of the medication and take it exactly as prescribed. FINISH THE MEDICATION - even if you are feeling better. Antibiotics can cause stomach upset and diarrhea, and increase the risk of C. Difficile Colitis. You can help decrease these symptoms/risks by taking a probiotic while using the medication (Align, Culturelle for example). Take your antibiotic with food unless otherwise recommended by the pharmacist. Author: Cinthya Johnston MD 08/24/2019 16:13 documented in this encounter Plan of Treatment Date Type Specialty Care Team Description 09/08/2019 Office Visit Family Practice Cinthya Johnston MD [address] [place] [address] [phone] 01/04/2020 Office Visit Cardiology Felton Sanchez MD [address] [place] [address] Name Type Priority Associated Diagnoses Date/Time XR CHEST 2 VIEW PA AND Imaging Routine Cough 08/24/2019 12:10 PM EST LATERAL (STANDARD) Name Type Priority Associated Diagnoses Order Schedule XR CHEST 2 VIEW PA AND Imaging Routine Cough Expected: 08/24/2019, LATERAL (STANDARD) Expires: 08/23/2020 Health Maintenance Due Date Last Done Comments DTaP/Tdap/Td Vaccines (1 - 1944 Tdap) ZOSTER IMMUNIZATION SERIES 1983 (1 of 2) INFLUENZA VACCINE (#1) 2019 04/19/2018, 06/11/2017, 03/24/2016, Additional history exists FALL RISK ASSESSMENT 07/05/2020 07/05/2019, 07/05/2019 DIABETES SCREENING 08/11/2020 08/11/2019, 08/11/2019, 05/12/2019, Additional history exists DEPRESSION SCREENING 08/23/2020 Postponed [...] Problems Progress Blood Pressure Blood Pressure Hypertension 130/70 No Carolee, < 140/90 (08/24/2019 Padmini, 11:34 AM EST) Note: Hypertension Care Plan Based [...] Educational Resources: National Heart, Lung, & Blood [place] http://nhlbi.nih.gov/hbp/index.html The DASH Diet Eating Plan http://www.nhlbi.nih.gov/health/health-topics/ topics/dash/ Academy of Nutrition & DIetetics http://eatright.org National Smoking Cessation Site http://smokefree.gov Blood Pressure < Blood Pressure 130/70 (08/24/2019 No Padmini Zarco, 150/90 11:34 AM EST) Note: This is an individualized [...] of this encounter Implants Implanted Type Area Clinical Support Associate Device Shelf Model / Identifier Expiration Serial / Lot Date Promus Element - [id number] Mid [employer] [id number] / Implanted: Qty: 1 on 11/18/2012 at [facility] / [id number] documented as of this encounter Results Not on filedocumented in this encounter Visit Diagnoses Diagnosis Cough Easy bruising Other symptoms involving skin and integumentary tissues PAF (paroxysmal atrial fibrillation) (HCC) Atrial fibrillation CKD (chronic kidney disease) stage 3, GFR 30-59 ml/min (HCC) Chronic kidney disease, Stage III (moderate) Community acquired pneumonia of right lower lobe of lung (HCC) documented in this encounter Insurance Payer Benefit Plan / Subscriber ID Effective Dates Phone Address Type Group MEDICARE MEDICARE PART A [id number] 1999-Present Medicare & B MEDICAID [facility] [id number] 2018-Present [place] Guarantor Name Account Type Relation to Date of Phone Billing Address Patient Abel Velazquez Personal/Family 1935 [facility] (Home) [facility] [phone] [address] (Work) [place] [address] documented as of this encounter Advance Directives Type Date Recorded 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
--- OUTSIDE RECORDS SUMMARY | 2019-10-02 19:25 | XMS REPORT | Summary of Care ---
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); [address] Easy bruising; [place] [address] [place] [address] PAF (paroxysmal atrial fibrillation) (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 quetiapine (SEROQUEL) Take 1 Tab by 30 Tab 1 08/11/2019 Active 25 MG Oral mouth EVERY TabIndications: BEDTIME NEEDED Dementia with (insomnia, behavioral disturbance, hallucinations, unspecified dementia agitation). type (HCC), Insomnia, unspecified type amLodipine (NORVASC) 10 Take 1 Tab by 90 Tab 3 08/11/2019 Active MG Oral TabIndications: mouth DAILY. Essential hypertension venlafaxine (EFFEXOR) Take 1 Tab by 60 Tab 5 08/11/2019 Active 75 MG Oral mouth DAILY. TabIndications: Acute depression SM ASPIRIN ADULT LOW TAKE ONE TABLET 90 Tab 1 08/16/2019 Active STRENGTH 81 MG Oral Tab BY MOUTH EVERY ECIndications: MORNING Preventative health care apixaban (ELIQUIS) 2.5 Take 1 Tab by 60 Tab 5 08/24/2019 Active MG Oral TabIndications: mouth TWICE PAF (paroxysmal atrial DAILY. New lower fibrillation) (HCC) dose atorvastatin (LIPITOR) 0 08/15/2019 Active 80 MG Oral Tab documented as of this encounter (statuses as of 09/08/2019) Active Problems Problem Noted Date Vitamin B12 [...] Overview: PSA 7.65 07/05 biopsy Tere 07/05: Jv grade 6 PSA 14.7 12/03 Treatment casodex/lupron [...] as of this encounter (statuses as of 09/08/2019) Resolved Problems Problem Noted Date Resolved Date Hypertension 06/04/2015 documented as of this encounter (statuses as of 09/08/2019) Immunizations Name Administration Dates Next Due H1N1 [...] Sign Reading Time Taken Comments Blood Pressure 118/60 09/08/2019 2:44 PM EDT Pulse 70 09/08/2019 2:44 PM EDT Temperature 36.8 09/08/2019 2:44 PM EDT C (98.3 F) Respiratory Rate 20 09/08/2019 2:44 PM EDT Oxygen Saturation 97% 09/08/2019 2:44 PM EDT Inhaled Oxygen Concentration - - Weight 83.6 kg (184 lb 4.8 oz) 09/08/2019 2:44 PM EDT Height 170.2 cm (5' 7") 09/08/2019 2:44 PM EDT Body Mass Index 28.87 09/08/2019 2:44 PM EDT documented in this encounter Patient Instructions Patient InstructionsCinthya Johnston MD - 09/08/2019 2:20 PM EDTI looked at your chest xray and it is improved. Infection control: Cough or sneeze into a tissue and throw it out Wash or sanitize hands after. Wash or sanitize your hands often and refrain from touching your face. Clean commonly used surfaces with a Clorox-type wash/wipe: door knobs, faucets , kitchen and bathroom counters, toilets, your keyboard, phone and glasses. If ill with cough and fever, stay home until improved. Do not share phones, drinks, ect. During this time of Coronavirus pandemic avoid social gatherings. Order out for delivery rather than eating out. Follow good infection control if you go to the store or pharmacy. Stay home, do not go out. If you get sick: If you have high fevers, deep cough, problems breathing, go to the ER. Milder symptoms can come to the office for evaluation. We cannot yet test for Coronavirus in the office, only the ER can. Hopefully this will change soon. documented in this encounter Progress Notes Cinthya Johnston MD - 09/08/2019 2:20 PM EDT Nursing Notes: Deepika Guo LPN 09/08/2019 2:55 PM Signed Chief Complaint Patient presents with ? Follow Up F/U to pneumonia, still coughing, productive cough, no color, no fever Seat Cover Installer: Ms Gómez Oncologist: none Urologist: Dr Wylie Gastroenterology: Dr Artie Rushing, dermatology: Skin cancer. Chief Complaint: Abel Velazquez is a 84-y.o. male who presents for follow up History of Present Illness: I lowered his Eliquis to 2.5 mg bid last visit and started him on Cefdinir. He tolerated this well. Here with his granddaughter. He is still coughing, now during the day and night, white sputum. No fevers, no chills. Eating and drinking well. He was bruising is resolved on the lower Eliquis dose. He is on aspirin and Eliquis. He is here with grand daughter Rosi. She declines chest CT for his chronic cough, but wants another chest xray. Per prior visits: He has COPD, CAD, atrial fibrillation,htn, PVD. [...] Glycemic Goals for Adult Diabetes*: <7.0% *(Adult Ranges)Citizen Of [place] Diabetes Association, Standards of Medical Care in [...] Study Equation which can be found at: https://www.kidney.org/content/zhpl-amghh-jynwvrui ? BUN/Creatinine Ratio 08/11/2019 21 6 - 22 RATIO Final ? Anion Gap 08/11/2019 5 3 - 11 mmol/L Final XR CHEST 2 VIEW PA AND LATERAL (STANDARD) Narrative: PROCEDURE INFORMATION: Exam: XR Chest, 2 Views Exam date and time: 08/24/2019 11:58 AM Age: 84 years old Clinical indication: Cough; Additional info: Cough, lll pneumonia on exam TECHNIQUE: Imaging protocol: XR of the chest Views: 2 views. COMPARISON: DX XR CHEST 2 VIEW PA AND LATERAL (STANDARD) 11/24/2018 9:04 AM FINDINGS: Lungs: Left lung is essentially clear. Postsurgical changes right lung with volume loss and pleural thickening/scarring. Superimposed infiltrate in the right lung base cannot be entirely excluded however appearance is similar to prior. Heart/Mediastinum: No cardiomegaly. Vasculature: Ectatic thoracic aorta. Bones/joints: No acute osseous findings. Postsurgical changes right rib. Impression: Postsurgical changes right lung with volume loss and pleural thickening/scarring. Superimposed infiltrate in the right lung base cannot be entirely excluded however appearance is similar to prior and is thought to be less likely. THIS DOCUMENT HAS BEEN ELECTRONICALLY SIGNED BY NILES CÁRDENAS MD Procedure(s): CT HEAD WITHOUT IV CONTRAST Date [...] Septal leads Confirmed by FELTON SANCHEZ MD ([id number]) (90) on 11/13/2018 9:44:06 AM Patient Active [...] STENT CORONARY; Surgeon: Tyler Owen MD; Location: [facility]; Laterality:N/A; CORONARY ARTERIOGRAM, FFR LAD, PRE DIL LAD, FAIZAN X1 LAD, SHEATH SUTURED LEFT FEM. ? EXCISION LESION (CHG) 11/05/2006 RT SIDE OF NOSE ? LOBECTOMY OF LUNG R, canncer ? WI BX/REMV,LYMPH NODE,DEEP CERV/SCAL ? TOTAL CYSTECTOMY NEC 10/28/2006 SEBACEOUS CYST, CHEST WALL Outpatient Medications as of 09/08/2019 Medication Sig Dispense Refill ? amLodipine (NORVASC) 10 MG Oral Tab Take 1 Tab by mouth DAILY. 90 Tab 3 ? apixaban (ELIQUIS) 2.5 MG Oral Tab Take 1 Tab by mouth TWICE DAILY. New lower dose 60 Tab 5 ? metoprolol (LOPRESSOR) 25 MG Oral Tab Take 1 Tab by mouth TWICE DAILY. 180 Tab 1 ? quetiapine (SEROQUEL) 25 MG Oral Tab Take 1 Tab by mouth EVERY BEDTIME NEEDED (insomnia, hallucinations, agitation). 30 Tab 1 ? SM ASPIRIN ADULT LOW STRENGTH 81 MG Oral Tab EC TAKE ONE TABLET BY MOUTH EVERY MORNING 90 Tab 1 ? venlafaxine (EFFEXOR) 75 MG Oral Tab Take 1 Tab by mouth DAILY. 60 Tab 5 No current facility-administered medications on file as of 09/08/2019. Allergies Allergen Reactions ? No Known Drug [...] Smoker Types: Cigarettes Last attempt to quit: 2004 Years since quittin.2 ? Smokeless tobacco: Never Used Substance and Sexual Activity ? Alcohol use: Yes Alcohol/week: 0.0 standard drinks ? Drug use: Yes ? Sexual activity: Not Currently Lifestyle ? Physical activity Days per week: Not on file Minutes per session: Not on file ? Stress: Not on file Relationships ? Social connections Talks on phone: Not on file Gets together: Not on file Attends muslim service: Not on file Active member of [...] aides all day and night, [address] [facility]. Uses walker, wheelchair, shower chair, commode Has [...] unexpected weight changes ENT ROS: negative for nasal congestion, nasal discharge Respiratory ROS: positive [...] that are not there PHYSICAL EXAMINATION: BP 118/60 (BP Location: Left arm, Patient Position: Sitting) | Pulse 70 | Temp 98.3 F (36.8 C) (Tympanic) | Resp 20 | Ht 5' 7" (1.702 m) | Wt 184 lb 4.8 oz (83.6 kg) | SpO2 97% | BMI 28.87 kg/m Physical Examination: General appearance - alert, well appearing, and in no distress Mental status - alert, oriented to person, place, and time, normal mood, behavior, speech, dress, motor activity, and thought processes Eyes - pupils equal, sclera anicteric Ears: TM montes bilararally Throat; mild erythema, no exudate Nose: No drainage Neck - supple, mild anteriorl cervical, but [...] tenderness Neurological - alert, normal speech, no tremor Extremities - dorsalis pedis pulses normal, no pedal edema ASSESSMENT/PLAN: ICD-9-CM ICD-10-CM 1. Cough, persistent 786.2 R05 XR CHEST 2 VIEW PA AND LATERAL (STANDARD) FLU A/FLU B/RSV PCR ASSAY (TESTED AT [facility] ONLY) FLU A/FLU B/RSV PCR ASSAY (TESTED AT [facility] ONLY) 2. Community acquired pneumonia of right lower lobe of lung ([facility]) 481 J18.1 3. Easy bruising 782.9 R23.8 4. PAF (paroxysmal atrial fibrillation) ([facility]) 427.31 I48.0 5. penitentiary current use of anticoagulant therapy V58.61 Z79.01 He is here with grand daughter Rosi. She declines chest CT for his chronic cough, but wants another chest xray and influenza swab: CAP appears improved on my reading of his chest xray I did not repeat his antibiotic. I will call and treat if the radiologist reads this differently. Bruising is resolved on lower eliquis dose. Patient Instructions I looked at your chest xray and it is improved. Infection control: Cough or sneeze into a tissue and throw it out Wash or sanitize hands after. Wash or sanitize your hands often and refrain from touching your face. Clean commonly used surfaces with a Clorox-type wash/wipe: door knobs, faucets , kitchen and bathroom counters, toilets, your keyboard, phone and glasses. If ill with cough and fever, stay home until improved. Do not share phones, drinks, ect. During this time of Coronavirus pandemic avoid social gatherings. Order out for delivery rather than eating out. Follow good infection control if you go to the store or pharmacy. Stay home, do not go out. If you get sick: If you have high fevers, deep cough, problems breathing, go to the ER. Milder symptoms can come to the office for evaluation. We cannot yet test for Coronavirus in the office, only the ER can. Hopefully this will change soon. Author: Cinthya Johnston MD 09/08/2019 16:11 documented in this encounter Plan of Treatment Date Type Specialty Care Team Description 09/08/2019 Ancillary Procedure Radiology Cough, persistent 01/04/2020 Office Visit Cardiology Felton Sanchez MD [address] [place] [address] [phone] Name Type Priority Associated Diagnoses Date/Time XR CHEST 2 VIEW PA AND Imaging Routine Cough, persistent 09/08/2019 3:31 PM EDT LATERAL (STANDARD) Name Type Priority Associated Diagnoses Order Schedule XR CHEST 2 VIEW PA AND Imaging Routine Cough, persistent Expected: 2019, LATERAL (STANDARD) Expires: 09/07/2020 FLU A/FLU B/RSV PCR Lab Routine Cough, persistent 1 Occurrences starting ASSAY (TESTED AT [facility] 09/08/2019 until LAB ONLY) 03/06/2020 Health Maintenance Due Date Last Done Comments [...] Problems Progress Blood Pressure Blood Pressure Hypertension 118/60 No Carolee, < 140/90 (09/08/2019 Padmini, 2:44 PM EDT) Note: Hypertension Care Plan Based on [...] Educational Resources. record my blood pressure results. Rogerio is safe and secure way for you [...] Educational Resources: National Heart, Lung, & Blood Effie http://nhlbi.nih.gov/hbp/index.html The DASH Diet Eating Plan http://www.nhlbi.nih.gov/health/health-topics/ topics/dash/ Academy of Nutrition & DIetetics http://eatright.org National Smoking Cessation Site http://smokefree.gov Blood Pressure < Blood Pressure 118/60 (09/08/2019 No Padmini Zarco, 150/90 2:44 PM EDT) Note: This is an individualized treatment [...] This is an individualized self-management goal for Able Velazquez: Please take all prescribed medications as [...] of this encounter Implants Implanted Type Area Food Broker Device Shelf Model / Identifier Expiration Serial / Lot Date Promus Element - [id number] [id number] [facility] [id number] / Implanted: Qty: 1 on 11/18/2012 at [facility] / [id number] documented as of this encounter Results Not on filedocumented in this encounter Visit Diagnoses Diagnosis Cough, persistent Cough Diagnosis Cough, persistent Cough Community acquired pneumonia of right lower lobe of lung (HCC) Easy bruising Other symptoms involving skin and integumentary tissues PAF (paroxysmal atrial fibrillation) (HCC) 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 documented in this encounter Insurance Payer Benefit Plan / Subscriber ID Effective Dates Phone Address Type Group [place] [id number] 2018-Present Medicaid [place] MED[place] MEDICARE PART A [id number] 1999-Present Medicare & B Guarantor Name Account Type Relation to Date of Phone Billing Address Patient Abel Velazquez Personal/Family 1935 [facility] (Home) [facility] [phone] [address] (Work) [place] [address] documented as of this encounter Advance Directives Type Date Recorded Patient Health Information Provider Explanation Advance Directives 11/15/2014 11:23 AM Health Care Proxy
[2019-10-02 20:24] VITALS: BP 144/79
--- NOTE | 2019-10-02 20:28 | UC ---
HPI Febrile Illness - HPI Summary HPI Summary: 84-year-old male comes in with a chief complaint of cough and fever. Patient's here with his daughter. Patient's had upper respiratory tract infection symptoms for more than a month. He was treated with an antibiotic for pneumonia last month and overall he had improved. About a week ago he started with a cough again. Today he developed fever of 101.3. Denies any rhinorrhea. He does have a cough. Denies being short of breath. Normal bowels. Denies any urinary symptoms. No known contact Covid. Denies myalgias. Decreased appetite today. Patient does have a history of fibrillation. He denies feeling any palpitations. - History of Current Complaint Chief Complaint: UCRespiratory Time Seen by Provider: 10/02/19 19:54 Pain Intensity: 0 - Additional Pertinent History Primary Care Physician: NILS - Allergy/Home Medications Allergies/Adverse Reactions: Allergies Allergy/AdvReac Type Severity Reaction Status Date / Time No Known Allergies Allergy Verified 10/02/19 19:36 Home Medications: Home Medications Aspirin EC TAB* [Ecotrin EC Low Dose 81 MG*] 81 mg PO QAM 09/27/14 [History Confirmed 10/02/19] Atorvastatin* [Lipitor 80 MG*] 80 mg PO QAM 09/27/14 [History Confirmed 10/02/19 ] amLODIPine TAB* [Norvasc 5 mg TAB*] 10 mg PO QAM 09/27/14 [History Confirmed 12/15] Apixaban* [Eliquis*] 2.5 mg PO BID 06/24/16 [History Confirmed 10/02/19] Omeprazole CAP (NF) [Prilosec CAP* 20 MG] 20 mg PO QAM 06/24/16 [History Confirmed 10/02/19] Sertraline* [Zoloft*] 150 mg PO QAM 06/24/16 [History Confirmed 10/02/19] Albuterol HFA INHALER* [Ventolin HFA Inhaler*] 2 puff INH Q4H PRN 08/13/17 [ History Confirmed 10/02/19] Nitroglycerin TAB 0.4 MG* 0.4 mg SL Q5M PRN 08/13/17 [History Confirmed 10/02/19 ] Tiotropium CAPSULE (NF) [Spiriva CAPSULE (NF)] 1 cap.inh INH QAM 08/13/17 [ History Confirmed 10/02/19] Azithromycin 250 mg PO DAILY #4 tablet 10/02/19 [Rx] Cefdinir [Cefdinir 300 MG CAP] 300 mg PO BID #18 capsule 10/02/19 [Rx] PMH/Surg Hx/FS Hx/Imm Hx Previously Healthy: Yes Endocrine History: Dyslipidemia Cardiovascular History: Cardiac Disease, Hypertension, Atrial Fibrillation Respiratory History: COPD - Surgical History Surgical History: Yes Surgery Procedure, Year, and Place: right lung lobectomy 2004 [place] 2012? - [facility] - Family History Known Family History: Positive: Hypertension, Diabetes, Other - HLD, CVA - Social History Alcohol Use: Occasionally Substance Use Type: None Smoking Status (MU): Former Smoker Type: Cigarettes Amount Used/How Often: 2 ppd for 30 years When Did the Patient Quit Smoking/Using Tobacco: 2004 - Immunization History Most Recent Influenza Vaccination: fall 2016 Most Recent Tetanus Shot: unknown Most Recent Pneumonia Vaccination: 2013 Review of Systems All Other Systems Reviewed And Are Negative: Yes Constitutional: Positive: Fever, Other - see hpi Skin: Positive: Negative Eyes: Positive: Negative ENT: Positive: Nasal Discharge Respiratory: Positive: Cough - see hpi Cardiovascular: Positive: Other - see hpi Gastrointestinal: Positive: Other - see hpi Motor: Positive: Negative Neurovascular: Positive: Negative Musculoskeletal: Positive: Negative Neurological/Mental Status: Positive: Negative Psychological: Positive: Negative Is Patient Immunocompromised?: No Physical Exam Triage Information Reviewed: Yes Appearance: No Pain Distress, Well-Nourished, Ill-Appearing - mild Vital Signs: Initial Vital Signs Temp 99.4 F 10/02/19 20:22 Pulse 144 10/02/19 20:22 Resp 16 10/02/19 20:22 BP 144/79 10/02/19 20:22 Pulse Ox 95 10/02/19 20:22 Vital Signs Reviewed: Yes Eye Exam: Normal Eyes: Positive: Conjunctiva Clear ENT: Positive: Nasal congestion Neck: Positive: Supple Cardiovascular: Positive: Tachycardia Musculoskeletal: Positive: ROM Intact Neurological: Positive: Alert Psychological: Positive: Age Appropriate Behavior Skin Exam: Normal Diagnostics - EKG Cardiac Rate: Tachycardia - AT 2036 Ectopy: PVCs ST Segment: Normal - Rapid atrial flutter at 117 bpm. Course/Dx - Diagnoses Provider Diagnosis: Pneumonia, Rapid atrial fibrillation Discharge ED - Sign-Out/Discharge Documenting (check all that apply): Patient Departure All imaging exams completed and their final reports reviewed: No - Discharge Plan Condition: Guarded Disposition: AGAINST MEDICAL ADVICE Prescriptions: Azithromycin 250 mg PO DAILY #4 tablet Cefdinir [Cefdinir 300 MG CAP] 300 mg PO BID #18 capsule Patient Education Materials: A-fib (Atrial Fibrillation) (ED), Community Acquired Pneumonia (ED) Forms: COVID-19 Tested & Isolation, Against Medical Advice Referrals: [facility] [Provider Group] [facility] [Outside] Additional Instructions: YOU ARE AT A RISK OF FROM YOUR PNEUMONIA AND RAPID ATRIAL FIBRILLATION. GO TO THE EMERGENCY DEPARTMENT NOW FOR FURTHER EVALUATION AND CARE OF YOUR PNEUMONIA AND RAPID ATRIAL FIBRILLATION. FOLLOW UP WITH YOUR DOCTOR. PLACE YOURSELF IN HOME ISOLATION. THE [facility] DEPART[facility] WILL CONTACT YOU. CONTACT THEM TOMORROW IF YOU HAVE NOT HEARD FROM THEM. - Billing Disposition and Condition Condition: GUARDED Disposition: Against Medical Advice
[2019-10-02] MEDS ORDERED: Acetaminophen TAB* 325 MG PO ONE ×2 (20:57→21:09)
[2019-10-02] MEDS ORDERED: Azithromycin TAB* 250 MG PO ONE (20:57)
[2019-10-02] MEDS ORDERED: Cefdinir cap* 300 MG CAP PO ONE (20:57)
[2019-10-02 21:06] LABS: Influenza A Molecular Negative (Negative); Influenza B Molecular Negative (Negative)
--- NOTE | 2019-10-03 14:31 | UC ---
- Progress Note Progress Note: read read correct Course/Dx - Diagnoses Provider Diagnoses: Pneumonia, Rapid atrial fibrillation Discharge ED - Sign-Out/Discharge Documenting (check all that apply): Post-Discharge Follow Up All imaging exams completed and their final reports reviewed: Yes - Discharge Plan Condition: Guarded Disposition: AGAINST MEDICAL ADVICE Prescriptions: Azithromycin 250 mg PO DAILY #4 tablet Cefdinir [Cefdinir 300 MG CAP] 300 mg PO BID #18 capsule Patient Education Materials: A-fib (Atrial Fibrillation) (ED), Community Acquired Pneumonia (ED) Forms: COVID-19 Tested & Isolation, Against Medical Advice Referrals: [facility] [Provider Group] [facility] [Outside] Additional Instructions: YOU ARE AT A RISK OF FROM YOUR PNEUMONIA AND RAPID ATRIAL FIBRILLATION. GO TO THE EMERGENCY DEPARTMENT NOW FOR FURTHER EVALUATION AND CARE OF YOUR PNEUMONIA AND RAPID ATRIAL FIBRILLATION. FOLLOW UP WITH YOUR DOCTOR. PLACE YOURSELF IN HOME ISOLATION. THE [facility] DEPARTMENT WILL CONTACT YOU. CONTACT THEM TOMORROW IF YOU HAVE NOT HEARD FROM THEM. - Billing Disposition and Condition Condition: GUARDED Disposition: Against Medical Advice
== END 2019-10-02 21:48 | disposition left against medical advice (07) ==
LOC: UCEAST 19:12
DX: J18.9 Pneumonia, unspecified organism (principal); I48.91 Unspecified atrial fibrillation; Z79.01 Long term (current) use of anticoagulants; Z20.828 Contact with and (suspected) exposure to other viral communicable diseases; E78.5 Hyperlipidemia, unspecified; I10 Essential (primary) hypertension; J44.9 Chronic obstructive pulmonary disease, unspecified; Z95.5 Presence of coronary angioplasty implant and graft; Z79.82 Long term (current) use of aspirin; Z79.899 Other long term (current) drug therapy; Z87.891 Personal history of nicotine dependence
CPT/HCPCS: 71046; 87635; 99213; A9270-GY; G0463; G2023

== ENCOUNTER 2020-06-30 22:01 | Inpatient (IN) ==
[2020-06-30 23:20] LABS: Influenza A Molecular Negative (Negative); Influenza B Molecular Negative (Negative)
[2020-06-30] MEDS: NS 0.9% 1000 ml BAG 1,000 ML IV ONE (23:22)
[2020-06-30 23:42] LABS: INR 1.16 (0.82-1.09)
[2020-06-30 23:45] LABS: ALT 14 U/L (7-52); AST 28 U/L (13-39); Albumin 3.9 g/dL (3.2-5.2); Albumin/Globulin Ratio 1.2 (1-3); Alkaline Phosphatase 61 U/L (34-104); Anion Gap 8 mmol/L (2-11); BUN/Creatinine Ratio 27.7 (8-20); Blood Urea Nitrogen 48 mg/dL (6-24); C Reactive Protein 61.59 mg/L (<8.01); CO2 Carbon Dioxide 22 mmol/L (22-32); Calcium 8.7 mg/dL (8.6-10.3); Chloride 105 mmol/L (101-111); EGFR African American 45.5 (>60); EGFR Non-African American 37.6 (>60); Globulin 3.2 g/dL (2-4); Glucose 114 mg/dL (70-100); Potassium 4.8 mmol/L (3.5-5.0); Sodium 135 mmol/L (135-145); Total Protein 7.1 g/dL (6.4-8.9)
[2020-06-30 23:51] LABS: Troponin I 0.03 ng/mL (<0.03)
[2020-07-01] MEDS ORDERED: Iodixanol (CONTRAST) 320 MG/ML 100 ML SDV IV ONE (00:33)
[2020-07-01 00:52] LABS: ABS Eosinophils 0.1 10^3/ul (0-0.6); ABS Lymphocytes 0.4 10^3/ul (1.0-4.8); ABS Monocytes 0.3 10^3/ul (0-0.8); ABS Neutrophils 1.5 10^3/ul (1.5-7.7); Eosinophil % 2.4 %; Hematocrit 45 % (42-52); Lymphocyte % 17.5 %; Mean Corpuscular HGB Conc 33 g/dL (31-36); Mean Corpuscular Hemoglobin 27 pg (27-31); Mean Corpuscular Volume 81 fL (80-94); Mean Platelet Volume 10.4 fL (7.4-10.4); Nucleated Red Blood Cells % 0.3; Platelet Count 96 10^3/uL (150-450); Red Blood Count 5.62 10^6 /uL (4.18-5.48); Red Cell Distribution Width 14 % (10-15); White Blood Count 2.2 10^3/uL (3.5-10.8)
[2020-07-01] MEDS ORDERED: Enoxaparin 80 MG/0.8 ML SYR SUBCUT ONE (01:43)
[2020-07-01 01:55] LABS: Urine Appearance Clear; Urine Bilirubin Negative (Negative); Urine Blood 1+ (Negative); Urine Color Yellow; Urine Glucose Negative (Negative); Urine Ketones Negative (Negative); Urine Nitrite Negative (Negative); Urine Protein 1+(30 mg/dL) (Negative); Urine Specific Gravity 1.032 (1.010-1.030); Urine Urobilinogen Negative (Negative)
[2020-07-01 01:57] LABS: Urine Bacteria Absent (Absent); Urine Red Blood Cell Trace(0-2/hpf) (Absent); Urine Squamous Epithelial Cell Present (Absent); Urine White Blood Cell Trace(0-5/hpf) (Absent)
[2020-07-01] MEDS: NS 0.9% 1000 ml BAG 1,000 ML IV ONE (02:43)
[2020-07-01 04:14] LABS: Creatine Kinase 283 U/L (10-223)
[2020-07-01 04:15] LABS: LDH 182 U/L (140-271)
[2020-07-01 04:36] LABS: Ferritin 197.5 ng/mL (24-336)
[2020-07-01] MEDS: NS 0.9% 1000 ml BAG 1,000 ML IV SCH ×3 (06:42→20:46)
[2020-07-01] MEDS: Mometasone/Formoter 200/5 MDI INH SCH ×2 (09:39→23:15)
[2020-07-01] MEDS: SPIRIVA Respimat (tiotropium) 2.5 mcg/inh Inhaler INH SCH (09:40)
[2020-07-01 11:13] LABS: Anion Gap 8 mmol/L (2-11); BUN/Creatinine Ratio 27.9 (8-20); Blood Urea Nitrogen 36 mg/dL (6-24); CO2 Carbon Dioxide 19 mmol/L (22-32); Calcium 7.4 mg/dL (8.6-10.3); Chloride 110 mmol/L (101-111); EGFR African American 63.9 (>60); EGFR Non-African American 52.8 (>60); Glucose 86 mg/dL (70-100); Potassium 4.5 mmol/L (3.5-5.0); Sodium 137 mmol/L (135-145)
[2020-07-01 11:23] LABS: Troponin I 0.03 ng/mL (<0.03)
[2020-07-02 04:32] LABS: ABS Eosinophils 0.1 10^3/ul (0-0.6); ABS Lymphocytes 0.6 10^3/ul (1.0-4.8); ABS Monocytes 0.3 10^3/ul (0-0.8); Eosinophil % 3.8 %; Hematocrit 41 % (42-52); Hemoglobin 13.5 g/dL (14.0-18.0); Lymphocyte % 28.3 %; Mean Corpuscular HGB Conc 33 g/dL (31-36); Mean Corpuscular Hemoglobin 27 pg (27-31); Mean Corpuscular Volume 81 fL (80-94); Mean Platelet Volume 9.8 fL (7.4-10.4); Nucleated Red Blood Cells % 0.3; Platelet Count 88 10^3/uL (150-450); Red Blood Count 5.09 10^6 /uL (4.18-5.48); Red Cell Distribution Width 15 % (10-15)
[2020-07-02 04:45] LABS: BUN/Creatinine Ratio 23.3 (8-20); Calcium 7.8 mg/dL (8.6-10.3); EGFR African American 72.2 (>60); EGFR Non-African American 59.7 (>60); Magnesium 1.8 mg/dL (1.9-2.7); Potassium 4.5 mmol/L (3.5-5.0)
[2020-07-02 04:48] LABS: Troponin I 0.02 ng/mL (<0.03)
[2020-07-02] MEDS: NS 0.9% 1000 ml BAG 1,000 ML IV SCH (06:22)
[2020-07-02] MEDS: Mometasone/Formoter 200/5 MDI INH SCH (08:06)
[2020-07-02] MEDS: SPIRIVA Respimat (tiotropium) 2.5 mcg/inh Inhaler INH SCH (08:06)
[2020-07-02] MEDS ORDERED: Aspirin EC 81 mg TAB.EC (enteric coated) PO SCH (09:00)
[2020-07-02] MEDS ORDERED: Influenza VAC *QUAD* 2020-21* 0.5 ML SYRINGE IM ONE (09:00)
[2020-07-02 17:42] VITALS: BP 135/68
== END 2020-07-02 17:30 | disposition home health service (06) | DRG 177 ==
LOC: ED 22:01 → MED 22:01
PROVIDERS: ADMIT Internal Medicine; ATTEND Student in an Organized Health Care Education/Training Program